=== PATIENT | female | born 1960 | race Caucasian/White ===

== ENCOUNTER 2023-02-25 07:06 | Inpatient (IN) | payer MEDICARE, OTHER ==
[2023-02-25] MEDS ORDERED: SODIUM CHLORIDE 0.9% 500 ML 500 ML IV ONE (07:10)
--- NOTE | 2023-02-25 07:13 | ED ---
General Adult HPI - General Stated complaint: AMS Time Seen by Provider: 02/25/23 07:06 Source: patient, RN notes reviewed, old records reviewed - History of Present Illness Initial comments: This is a 62-year-old female who arrives via EMS. Patient was found at home initially unresponsive to the sister eventually came around and became combative in route. Sister states she is a seizure patient is on seizure medication howev er she does not what is patient is unable to give any further history sister. Sister thought maybe she hurt her left leg because it was bent behind her however EMS indicates that in route the patient was able to move the left leg. At this time there is no further history available sister will be here soon hopefully - Related Data Allergies Allergy/AdvReac Type Severity Reaction Status Date / Time No Known Allergies Allergy Verified 02/25/23 08:30 Review of Systems ROS Statement: Those systems with pertinent positive or pertinent negative responses have been documented in the HPI. ROS Other: All systems not noted in ROS Statement are negative. General Exam - General Exam Comments Initial Comments: GENERAL: Patient is well-developed and well-nourished. Patient is nontoxic and well- hydrated and is in no acute distress. ENT: Neck is soft and supple. No significant lymphadenopathy is noted. Oropharynx is clear. Moist mucous membranes. Neck has full range of motion without eliciting any pain. EYES: The sclera were anicteric and conjunctiva were pink and moist. Extraocular movements were intact and pupils were equal round and reactive to light. Eyelids were unremarkable. PULMONARY: Unlabored respirations. Good breath sounds bilaterally. No audible rales rhonchi or wheezing was noted. CARDIOVASCULAR: There is a regular rate and rhythm without any murmurs gallops or rubs. ABDOMEN: Soft and nontender with normal bowel sounds. SKIN: Skin is clear with no lesions or rashes and otherwise unremarkable. NEUROLOGIC: Patient is alert and oriented 0. Cranial nerves II through XII are grossly intact. MUSCULOSKELETAL: Patient appears to be able to move all 4 extremities without much limitation LYMPHATICS: No significant lymphadenopathy is noted PSYCHIATRIC: Unable to assess Course Vital Signs 02/25/23 07:18 Temperature 97.9 F Pulse Rate 60 Respiratory 18 Rate Blood Pressure 193/93 O2 Sat by Pulse 97 Oximetry Procedures - Restraint - Face to Face Restraint Occurrence 1 Patient's Immediate Situation: Endangers self safety, Endangers others' safety, Endangers staff safety Patient's Reaction to the Intervention: Uncooperative, Bizarre, Combative Patient's Medical & Behavioral Condition: Awake, Agitated Need to Continue or Terminate Restraint or Seclusion: Continue Face to Face Eval of Restraint Date: 02/25/23 Face to Face Eval of Restraint Time: 07:06 Medical Decision Making - Medical Decision Making EKG was interpreted by myself. EKG shows sinus rhythm at 79 bpm OK interval 264 QRS is 114 QT interval 380 QTC is 4:15. Patient's EKG shows no ST segment elevation or depression. Was pt. sent in by a medical professional or institution (, PA, CARPET YARN WINDER OPERATOR, urgent care, hospital, or [facility]...) When possible be specific @ -No Did you speak to anyone other than the patient for history (EMS, parent, family, police, friend...)? What history was obtained from this source @ -Sister gave some of the history Did you review nursing and triage notes (agree or disagree)? Why? @ -I reviewed and agree with nursing and triage notes Were old charts reviewed (outside hosp., previous admission, EMS record, old EKG, old radiological studies, urgent care reports/EKG's, [facility] records)? Report findings @ -No old charts were reviewed Differential Diagnosis (chest pain, altered mental status, abdominal pain women, abdominal pain men, vaginal bleeding, weakness, fever, dyspnea, syncope, headache, dizziness, GI bleed, back pain, seizure, CVA, palpatations, mental health, musculoskeletal)? @ -Differential Altered Mental Status: Hypoglycemia, DKA, hypercapnia, ETOH, overdose, CO poisoning, trauma, myxedema coma, HTN encephalopathy, infection, encephalitis, psychosis, intercranial hemorrhage, hepatic encephalopathy, meningitis, CVA, this is not meant to be an all-inclusive list EKG interpreted by me (3pts min.). @ -As above X-rays interpreted by me (1pt min.). @ -Chest x-ray shows no acute abnormality CT interpreted by me (1pt min.). @ -CT of the brain shows a remote area of injury in the occipital region on the left. On the right there is a note of her injury that looks more. U/S interpreted by me (1pt. min.). @ -None done What testing was considered but not performed or refused? (CT, X-rays, U/S, labs)? Why? @ -None What meds were considered but not given or refused? Why? @ -None Did you discuss the management of the patient with other professionals (professionals i.e. , PA, CARPET YARN WINDER OPERATOR, lab, RT, psych nurse, social worker school, manager of applications development, teacher, surface to air weapons officer, case sealer)? Give summary @ -I spoke with sounds physicians and they agreed to admit the patient Was smoking cessation discussed for >3mins.? @ -No Was critical care preformed (if so, how long)? @ -No Were there social determinants of health that impacted care today? How? (Homelessness, low income, unemployed, alcoholism, drug addiction, transportation, low edu. Level, literacy, decrease access to med. care, longterm, rehab)? @ -No Was there de-escalation of care discussed even if they declined (Discuss DNR or withdrawal of care, Hospice)? DNR status @ -No What co-morbidities impacted this encounter? (DM, HTN, Smoking, COPD, CAD, Cancer, CVA, ARF, Chemo, Hep., AIDS, mental health diagnosis, sleep apnea, morbid obesity)? @ -None Was patient admitted / discharged? Hospital course, mention meds given and route, prescriptions, significant lab abnormalities, going to OR and other pertinent info. @ -Patient was unresponsive according to his sister when she initially found her this morning. Patient has slowly come around and she is more alert and talking occasionally but nowhere near her baseline according to the sister. Patient had a CAT scan that showed a potential injury in the right occipital region. Patient's lab work shows no significant abnormality to explain the patient's altered mental status. I spoke with son physicians and they agreed to admit the patient admitted the patient wrote admitting orders I consult the neurology Undiagnosed new problem with uncertain prognosis? @ -No Drug Therapy requiring intensive monitoring for toxicity (Heparin, Nitro, Insulin, Cardizem)? @ -No Were any procedures done? @ -No Diagnosis/symptom? @ -Altered mental status Acute, or Chronic, or Acute on Chronic? @ -Acute Uncomplicated (without systemic symptoms) or Complicated (systemic symptoms)? @ -Complicated Side effects of treatment? @ -No Exacerbation, Progression, or Severe Exacerbation? @ -No Poses a threat to life or bodily function? How? (Chest pain, [place], [place], pneumonia, PE, COPD, DKA, ARF, appy, cholecystitis, CVA, Diverticulitis, Homicidal, Suicidal, threat to staff... and all critical care pts) @ -Yes this could be a stroke leading to more significant stroke possible - Lab Data Result diagrams: 02/25/23 07:35 02/25/23 07:35 Lab Results 02/25/23 02/25/23 02/25/23 Range/Units 07:20 07:35 07:35 WBC 10.9 H (3.8-10.6) k/uL RBC 4.80 (3.80-5.40) m/uL Hgb 13.6 (11.4-16.0) gm/dL Hct 43.0 (34.0-46.0) % MCV 89.6 (80.0-100.0) fL MCH 28.4 (25.0-35.0) pg MCHC 31.7 (31.0-37.0) g/dL RDW 14.8 (11.5-15.5) % Plt Count 239 (150-450) k/uL MPV 8.1 Neutrophils % 72 % Lymphocytes % 20 % Monocytes % 5 % Eosinophils % 1 % Basophils % 0 % Neutrophils # 7.8 H (1.3-7.7) k/uL Lymphocytes # 2.2 (1.0-4.8) k/uL Monocytes # 0.6 (0-1.0) k/uL Eosinophils # 0.2 (0-0.7) k/uL Basophils # 0.0 (0-0.2) k/uL Hypochromasia Slight PT 9.8 (9.0-12.0) sec INR 0.9 (<1.2) APTT 25.3 (22.0-30.0) sec Sodium (137-145) mmol/L Potassium (3.5-5.1) mmol/L Chloride (98-107) mmol/L Carbon Dioxide (22-30) mmol/L Anion Gap mmol/L BUN (7-17) mg/dL Creatinine (0.52-1.04) mg/dL Est GFR (CKD-EPI)AfAm (>60 ml/min/1.73 sqM) Est GFR (CKD-EPI)NonAf (>60 ml/min/1.73 sqM) Glucose (74-99) mg/dL POC Glucose (mg/dL) 148 H (70-110) mg/dL POC Glu [employer]ishing Materials Preparer ID Corry Zarco Calcium (8.4-10.2) mg/dL Total Bilirubin (0.2-1.3) mg/dL AST (14-36) U/L ALT (4-34) U/L Alkaline Phosphatase (38-126) U/L Troponin I (0.000-0.034) ng/mL Total Protein (6.3-8.2) g/dL Albumin (3.5-5.0) g/dL Urine Opiates Screen (NotDetected) Ur Oxycodone Screen (NotDetected) Urine Methadone Screen (NotDetected) Ur Propoxyphene Screen (NotDetected) Ur Barbiturates Screen (NotDetected) U Tricyclic Antidepress (NotDetected) Ur Phencyclidine Scrn (NotDetected) Ur Amphetamines Screen (NotDetected) U Methamphetamines Scrn (NotDetected) U Benzodiazepines Scrn (NotDetected) Urine Cocaine Screen (NotDetected) U Marijuana (THC) Screen (NotDetected) 02/25/23 02/25/23 02/25/23 Range/Units 07:35 07:35 07:35 WBC (3.8-10.6) k/uL RBC (3.80-5.40) m/uL Hgb (11.4-16.0) gm/dL Hct (34.0-46.0) % MCV (80.0-100.0) fL MCH (25.0-35.0) pg MCHC (31.0-37.0) g/dL RDW (11.5-15.5) % Plt Count (150-450) k/uL MPV Neutrophils % % Lymphocytes % % Monocytes % % Eosinophils % % Basophils % % Neutrophils # (1.3-7.7) k/uL Lymphocytes # (1.0-4.8) k/uL Monocytes # (0-1.0) k/uL Eosinophils # (0-0.7) k/uL Basophils # (0-0.2) k/uL Hypochromasia PT (9.0-12.0) sec INR (<1.2) APTT (22.0-30.0) sec Sodium 138 (137-145) mmol/L Potassium 5.3 H (3.5-5.1) mmol/L Chloride 100 (98-107) mmol/L Carbon Dioxide 31 H (22-30) mmol/L Anion Gap 7 mmol/L BUN 29 H (7-17) mg/dL Creatinine 1.59 H (0.52-1.04) mg/dL Est GFR (CKD-EPI)AfAm 40 (>60 ml/min/1.73 sqM) Est GFR (CKD-EPI)NonAf 35 (>60 ml/min/1.73 sqM) Glucose 176 H (74-99) mg/dL POC Glucose (mg/dL) (70-110) mg/dL POC Glu Hat Finishing Materials Preparer ID Calcium 9.6 (8.4-10.2) mg/dL Total Bilirubin 0.4 (0.2-1.3) mg/dL AST 35 (14-36) U/L ALT 45 H (4-34) U/L Alkaline Phosphatase 190 H (38-126) U/L Troponin I <0.012 (0.000-0.034) ng/mL Total Protein 8.2 (6.3-8.2) g/dL Albumin 4.4 (3.5-5.0) g/dL Urine Opiates Screen Not Detected (NotDetected) Ur Oxycodone Screen Not Detected (NotDetected) Urine Methadone Screen Not Detected (NotDetected) Ur Propoxyphene Screen Not Detected (NotDetected) Ur Barbiturates Screen Not Detected (NotDetected) U Tricyclic Antidepress Not Detected (NotDetected) Ur Phencyclidine Scrn Not Detected (NotDetected) Ur Amphetamines Screen Not Detected (NotDetected) U Methamphetamines Scrn Not Detected (NotDetected) U Benzodiazepines Scrn Not Detected (NotDetected) Urine Cocaine Screen Not Detected (NotDetected) U Marijuana (THC) Screen Not Detected (NotDetected) Disposition Clinical Impression: Altered mental status Disposition: ADMITTED IP TO THIS [facility] Referrals: None,Stated [Primary Care Provider] - 1-2 days Time of Disposition: 10:55
[2023-02-25 07:22] LABS: Glucose,Whole Blood 148 mg/dL (70-110)
[2023-02-25 08:11] LABS: Basophils % (A) 0 %; Eosinophils # (A) 0.2 k/uL (0-0.7); Eosinophils % (A) 1 %; HGB 13.6 gm/dL (11.4-16.0); Hypochromasia Slight; Lymphocytes # (A) 2.2 k/uL (1.0-4.8); Lymphocytes % (A) 20 %; MCH 28.4 pg (25.0-35.0); MCHC 31.7 g/dL (31.0-37.0); MCV 89.6 fL (80.0-100.0); Mean Platelet Volume 8.1; Monocytes # (A) 0.6 k/uL (0-1.0); Monocytes % (A) 5 %; Neutrophils # (A) 7.8 k/uL (1.3-7.7); Neutrophils % (A) 72 %; Platelet Count 239 k/uL (150-450); RDW 14.8 % (11.5-15.5); WBC 10.9 k/uL (3.8-10.6)
--- NOTE | 2023-02-25 08:16 | XR ---
EXAMINATION TYPE: XR chest 1V DATE OF EXAM: 02/25/2023 COMPARISON: None INDICATION: Altered mental status TECHNIQUE: Single frontal view of the chest is obtained. FINDINGS: The heart size is normal. The pulmonary vasculature is normal. There is a 1.1 cm nodular density periphery of the right upper lung field. No suspicious infiltrates are evident. IMPRESSION: 1. No acute pulmonary process. 2. 1.1 cm nodule right lung. CT or PET CT can be performed as follow-up.
[2023-02-25 08:21] LABS: ALT 45 U/L (4-34); AST 35 U/L (14-36); African American GFR (CKD) 40 (>60 ml/min/1.73 sqM); Albumin 4.4 g/dL (3.5-5.0); Alkaline Phosphatase 190 U/L (38-126); Anion Gap 7 mmol/L; Blood Urea Nitrogen 29 mg/dL (7-17); Calcium 9.6 mg/dL (8.4-10.2); Carbon Dioxide 31 mmol/L (22-30); Chloride 100 mmol/L (98-107); Glucose 176 mg/dL (74-99); Non-African American GFR(CKD) 35 (>60 ml/min/1.73 sqM); Potassium 5.3 mmol/L (3.5-5.1); Sodium 138 mmol/L (137-145); Total Bilirubin 0.4 mg/dL (0.2-1.3); Total Protein 8.2 g/dL (6.3-8.2)
[2023-02-25 08:35] LABS: INR 0.9 (<1.2); Partial Thromboplastin Time 25.3 sec (22.0-30.0); Prothrombin Time 9.8 sec (9.0-12.0)
--- NOTE | 2023-02-25 08:43 | CT ---
EXAMINATION TYPE: CT brain rachel marcus con DATE OF EXAM: 02/25/2023 COMPARISON: None HISTORY: FALL CT DLP: 1319.[address] of the brain was performed. The ventricles, basal cisterns and sulci overlying the cerebral convexities demonstrate mild enlargem ent. There is decreased attenuation within the bilateral occipital lobes with ex vacuo dilatation of the l eft occipital horn suggesting remote process. On the right the decreased attenuation may reflect rela tively recent vascular insult. Correlate with MRI. There is no evidence for intracranial hemorrhage or sulcal effacement. There is decreased attenuatio n about the periventricular white matter and deep white matter of both cerebral hemispheres, compatib le with chronic small vessel ischemia. No mass effects are seen. If symptoms persist consider MRI. Osseous calvarium is intact. IMPRESSION: 1. Age related atrophic and chronic small vessel ischemic change without acute intracranial hemorrha ge. 2. There is decreased attenuation within the bilateral occipital lobes with ex vacuo dilatation of th e left occipital horn suggesting remote process. On the right the decreased attenuation may reflect r elatively recent vascular insult. Correlate with MRI. CT Cervical Spine: Unenhanced CT of the cervical spine was performed with bone and soft tissue window settings submitted . Coronal and sagittal reconstruction is obtained. There is normal alignment and prevertebral soft tissues. No evidence for acute cervical fracture . Scattered degenerative disc disease and spondylosis. Biapical scarring. IMPRESSION: 1. No evidence for acute fracture or subluxation of the cervical spine.
[2023-02-25] MEDS: LORazepam 2 MG/ML INJ IV STA ×2 (09:33→11:03)
[2023-02-25] MEDS: ACETAMINOPHEN TAB 500 MG TAB PO STA ×2 (09:34→09:45)
[2023-02-25 10:39] LABS: Urn Cannabinoid Scrn Not Detected (NotDetected)
[2023-02-25 10:40] LABS: Amphetamine Screen,Urine Not Detected (NotDetected); Barbiturate Screen,Urine Not Detected (NotDetected); Benzodiazepines Screen,Urine Not Detected (NotDetected); Cocaine Screen,Urine Not Detected (NotDetected); Methadone Screen, Urine Not Detected (NotDetected); Opiate Screen,Urine Not Detected (NotDetected); Oxycodone Screen, Urine Not Detected (NotDetected); Phencyclidine Screen,Urine Not Detected (NotDetected); Tricyclic Antidepressant,Urine Not Detected (NotDetected)
[2023-02-25] MEDS ORDERED: ACETAMINOPHEN IV (For NPO) 1,000 MG in EMPTY BAG 1 BAG IVPB ONE (14:39)
--- NOTE | 2023-02-25 17:19 | P.HPIM ---
History of Present Illness H&P Date: 02/25/23 Chief Complaint: AMS 62-year-old woman with medical history of seizure disorder, hypertension, atrial flutter presented for evaluation of altered mental status. Patient was confused and unable to provide any meaningful history during interview. History is taken from ER provider signout, chart review, daughter who is at bedside. From my understanding, patient has been living in [place] and for the last year has been bouncing back and forth from rehab due to recurrent seizures. Her seizures manifest as episodes of staring off into the distance, but are never generalized tonic clonic. She had been on Keppra, however, at some point last year she developed double vision which was vertically oriented, prompting her physicians to take her off of her medications. Since that time, patient has had recurrent bouts of seizures. During the last episode, patient had EMS called for initial unresponsiveness and staring off into space, however, during transportation here she became combative in the ambulance. Patient is unable to participate in review of systems due to altered mental status. In the emergency room, patient was afebrile, 174/92, heart rate 68, 96% on room air. CBC demonstrated mild leukocytosis 10.9, otherwise unremarkable. His metabolic panel showed potassium of 5.3, CO2 of 31, BMI 29, creatinine of 1.59. Liver function test showed ALT 45, AST of 35, alkaline phosphatase 190. Troponin was less than 0.012. Coags are unremarkable. Urine tox screen was negative. Chest x-ray shows clear parenchyma bilaterally with possibly increased vascularity, there is a 1 cm nodule in the right upper lobe. Head/cervical spine CT showed decreased attenuation within the bilateral occipital lobes with X vacuo dilation of the left us a little horn suggesting remote process, on the right side there is decreased attenuation which may reflect relatively recent vascular insult. EKG shows normal sinus rhythm with right bundle branch block, low voltage EKG overall. Case was discussed with the emergency room provider and decision was made to admit patient to hospital for further evaluation of seizure-like activity. All Systems reviewed and pertinent positives and negatives noted in HPI, all other symptoms are negative Gen: in no apparent distress, resting comfortably in bed Eyes: PERRL, no scleral injection or icterus HENT: normocephalic, atraumatic, good hearing acuity, moist mucous membranes Neck: no tracheal deviation, full range of motion Resp: good air exchange, breathing comfortably with no accessory muscle use, no tactile fremitus CVS: good distal perfusion x 4, no pitting edema GI: soft, NTTP, ND, no hepatosplenomegaly : no suprapubic tenderness, no CVAT, rojas catheter not present MSK: no clubbing, no cyanosis, no noted contractures of extremities Skin: no noted rashes, petechiae; temperature of skin is appropriate Neuro: moving all extremities without signs of weakness, CN II-XII intact Labs and imaging as above Assessment: Altered mental status History of seizure disorder History of CVA in the occipital lobe Hypertension History of atrial flutter Plan: Vital signs reviewed and noted in the HPI Lab work reviewed and noted in the HPI EKG and CXR are personally interpreted and noted in the HPI CT Head and Neck was reviewed and reported in HPI above Case was discussed with the Emergency Room provider and decision was made to admit the patient for altered mental status, and stroke rule out Continue aspirin 81 mg daily Start atorvastatin 80 mg at bedtime Hold off on Keppra until results of EEG available Neurology consult MRI of the brain Echocardiogram TSH Lipid panel, A1c added to a.m. labs Patient is full code Past Medical History Past Medical History: Atrial Fibrillation, GERD/Reflux, Hypertension, Seizure Disorder, Thyroid Disorder Additional Past Medical History / Comment(s): severe pancreatitis - hospitallized for about a year 2021, blood clot on top of heart while in hospital History of Any Multi-Drug Resistant Organisms: None Reported Past Surgical History: Cholecystectomy Additional Past Surgical History / Comment(s): Cyst removal Smoking Status: Former smoker Past Alcohol Use History: None Reported Past Drug Use History: None Reported Medications and Allergies Home Medications Medication Instructions Recorded Confirmed Type Aspirin 81 mg PO DAILY 02/25/23 02/25/23 History Levothyroxine Sodium [Synthroid] 25 mcg PO DAILY 02/25/23 02/25/23 History Metoprolol Succinate [Toprol XL] 50 mg PO DAILY 02/25/23 02/25/23 History Omeprazole 20 mg PO DAILY 02/25/23 02/25/23 History levETIRAcetam [Keppra] 500 mg PO BID 02/25/23 02/25/23 History Allergies Allergy/AdvReac Type Severity Reaction Status Date / Time No Known Allergies Allergy Verified 02/25/23 12:00 Physical Exam Osteopathic Statement: *. No significant issues noted on an osteopathic structural exam other than those noted in the History and Physical/Consult. Vitals: Vital Signs Temp Pulse Resp BP Pulse Ox 02/25/23 15:00 68 18 168/98 96 02/25/23 13:00 70 18 172/96 97 02/25/23 11:00 67 18 183/98 97 02/25/23 10:00 68 18 174/92 96 02/25/23 07:18 97.9 F 60 18 193/93 97 Intake and Output 02/25/23 02/25/23 02/25/23 06:59 14:59 22:59 Other: Weight 74.843 kg Results CBC & Chem 7: 02/25/23 07:35 02/25/23 07:35 Labs: Abnormal Lab Results - Last 24 Hours (Table) 02/25/23 02/25/23 02/25/23 Range/Units 07:20 07:35 07:35 WBC 10.9 H (3.8-10.6) k/uL Neutrophils # 7.8 H (1.3-7.7) k/uL Potassium 5.3 H (3.5-5.1) mmol/L Carbon Dioxide 31 H (22-30) mmol/L BUN 29 H (7-17) mg/dL Creatinine 1.59 H (0.52-1.04) mg/dL Glucose 176 H (74-99) mg/dL POC Glucose (mg/dL) 148 H (70-110) mg/dL ALT 45 H (4-34) U/L Alkaline Phosphatase 190 H (38-126) U/L
[2023-02-25] MEDS: Lacosamide IV (ages 17+ yrs) 200 MG/20 ML ML IVP SCH (22:53)
--- NOTE | 2023-02-25 22:53 | EEG ---
DATE OF SERVICE: 02/25/2023 ELECTROENCEPHALOGRAM REPORT PREAMBLE: This is a 62-year-old female with seizure. CURRENT MEDICATIONS: Keppra 500 mg b.i.d. EEG FINDINGS: This is a 21-channel digital EEG recorded with video component, utilizing 10/20 international system with referential and bipolar montages. The recording starts and continues with presence of diffuse slow waves including mixed delta and theta frequency seen in bihemispheric region. A lot of sleep spindles were also seen during the study. Photic stimulation was not performed. Her right temporal sharp appearing waves were seen in first part of the study. No electrographic seizure was recorded. Photic stimulation was not performed. EKG channel showed no obvious arrhythmia. IMPRESSION: This is an abnormal sleep EEG due to diffuse disorganization, slowing, of severe degree, suggestive of generalized cerebral dysfunction as can be seen with toxic metabolic encephalopathy or related to diffuse structural brain abnormality, or postictal effect. Clinical correlation is recommended. Some right temporal sharp waves were seen in early part of the study, which may suggest underlying cortical irritability. No electrographic seizure was recorded. Suggest prolonged EEG for further evaluation. MMODL / IJN: [id number] / MTDFrancis
[2023-02-25] MEDS: levETIRAcetam IV 500 MG/5 ML VIAL IVP SCH (23:00)
[2023-02-26] MEDS ORDERED: PHENYTOIN SODIUM INJ 1,200 MG in SODIUM CHLORIDE 0.9% 100 ML IVPB STA (03:43)
[2023-02-26 03:46] LABS: Glucose,Whole Blood 116 mg/dL (70-110)
[2023-02-26] MEDS: LORazepam 2 MG/ML INJ IV PRN (03:56)
[2023-02-26 04:32] LABS: Glucose,Whole Blood 133 mg/dL (70-110)
[2023-02-26] MEDS ORDERED: NALOXONE 0.4 MG/ML 1 ML VIAL IV PRN (04:53)
--- NOTE | 2023-02-26 05:51 | P.CNPUL ---
History of Present Illness Consult date: 02/26/23 Requesting physician: Deacon Chau Reason for consult: other (ICU management) Chief complaint: Seizure-like activity History of present illness: I'm seeing this patient in consultation today 02/26/2023 after the patient was A-teamed earlier this morning for seizure-like activity. Patient is 62-year-old female with medical history significant for relatively new onset seizure disorder that reportedly started March,. Patient also has a history of hypertension, atrial fibrillation, hypothyroidism, and pancreatitis. Patient is reportedly visiting her sister and is actually from [place]. Her primary care provider is Hansa Guevara out of [place], [place]. Patient was confused and unable to provide any meaningful history during interview. Her sister is at the bedside and provides most of this information. To my understanding, patient started to experience seizures March,. Sister is unable to describe the seizures, and has not witnessed her previous seizures personally. Patient was reportedly started on Keppra, but developed diplopia prompting her physician to discontinue this. Since that time, patient has had recurrent bouts of seizures. Yesterday morning, the patient was found unresponsive on the floor next to her bed. It is unknown how long the patient was down on the floor. EMS was called, and in route to the hospital, she became combative. CT of the brain and c-spine on arrival showed decreased attenuation within the bilateral occipital lobes with ex vacuo dilatation of the left occipital horn suggesting remote process. On the right, the decreased attenuation may reflect relatively more recent vascular insult. EEG showed diffuse disorganization, severe slowing, suggestive of generalized cerebral dysfunction seen with toxic metabolic encephalopathy , diffuse structural abnormality, or possibly postictal effect. There were temporal sharp waves seen suggesting underlying cortical irritability. No EEG evidence of seizure was recorded. CBC on arrival is unremarkable. BMP shows sodium 138, potassium 5.3, chloride 100, serum bicarb 31, BUN 29, creatinine 1.59, glucose 176. Liver function test showed ALT 45, AST of 35, alkaline phosphatase 190. Urine drug screen was negative. Chest x-ray showed a 1.1 cm right upper lung nodule that will need further evaluation on an outpatient basis. No acute cardiopulmonary process. Patient was admitted to the cardiac stepdown unit. Earlier this morning, the patient had sustained seizure-like activity over approximately 30 minutes according to the technical staff engineer. No generalized tonic-clonic activity. The patient reportedly would have intermittent bouts of absent staring and unresponsiveness that lasted about 20 seconds and then repeated. No complete recovery between episodes. This was terminated with a when necessary dose of Ativan. The patient was already on Keppra and Vimpat, and neurology recommended loading the patient with Dilantin. On my evaluation the patient is responsive and able to answer simple questions. She is oriented to person, place, and time. Neuro examination is nonfocal. She is hemodynamically stable, on room air, in no acute distress.. Patient was transferred to the intensive care unit for closer monitoring. Plan is for prolonged EEG in the morning and follow-up brain MRI. Review of Systems ROS unobtainable: due to mental status Past Medical History Past Medical History: Atrial Fibrillation, GERD/Reflux, Hypertension, Seizure Disorder, Thyroid Disorder Additional Past Medical History / Comment(s): severe pancreatitis - hospitallized for about a year 2021, blood clot on top of heart while in hospital History of Any Multi-Drug Resistant Organisms: None Reported Past Surgical History: Cholecystectomy Additional Past Surgical History / Comment(s): Cyst removal Past Anesthesia/Blood Transfusion Reactions: No Reported Reaction Smoking Status: Former smoker Medications and Allergies Home Medications Medication Instructions Recorded Confirmed Type Aspirin 81 mg PO DAILY 02/25/23 02/25/23 History Levothyroxine Sodium [Synthroid] 25 mcg PO DAILY 02/25/23 02/25/23 History Metoprolol Succinate [Toprol XL] 50 mg PO DAILY 02/25/23 02/25/23 History Omeprazole 20 mg PO DAILY 02/25/23 02/25/23 History levETIRAcetam [Keppra] 500 mg PO BID 02/25/23 02/25/23 History Allergies Allergy/AdvReac Type Severity Reaction Status Date / Time No Known Allergies Allergy Verified 02/25/23 12:00 Physical Exam Vitals: Vital Signs Temp Pulse Pulse Resp BP BP Pulse Ox 02/26/23 03:30 98.8 F 67 18 149/91 97 02/26/23 00:43 98 02/26/23 00:00 98.7 F 82 16 146/79 98 02/25/23 22:00 98.6 F 70 16 141/67 97 02/25/23 21:00 98.4 F 78 18 134/72 98 02/25/23 15:00 68 18 168/98 96 08/23/23 13:00 70 18 172/96 97 02/25/23 11:00 67 18 183/98 97 02/25/23 10:00 68 18 174/92 96 02/25/23 07:18 97.9 F 60 18 193/93 97 FiO2 02/26/23 03:30 02/26/23 00:43 21 02/26/23 00:00 02/25/23 22:00 02/25/23 21:00 02/25/23 15:00 02/25/23 13:00 02/25/23 11:00 02/25/23 10:00 02/25/23 07:18 Intake and Output 02/25/23 02/25/23 02/26/23 14:59 22:59 06:59 Intake Total 10 Output Total 150 Balance 10 -150 Intake: IV 10 Invasive Line 2 10 Output: Urine 150 Other: Voiding Method External Catheter External Catheter Weight 74.843 kg 74.843 kg GENERAL EXAM: Drowsy, 62-year-old white female, having intermittent bouts of intractable crying. HEAD: Normocephalic and atraumatic EYES: Normal reaction of pupils, equal size. NOSE: Clear with pink turbinates. THROAT: No erythema or exudates. NECK: No masses, no JVD. CHEST: No chest wall deformity. LUNGS: Equal air entry with no crackles, wheeze, rhonchi or dullness. On room air. No conversational dyspnea or accessory muscle use.. CVS: S1 and S2 normal with no audible murmur, regular rhythm. No extra heart sounds ABDOMEN: No hepatosplenomegaly, active bowel sounds, no guarding or rigidity. SPINE: No scoliosis or deformity SKIN: No rashes CENTRAL NERVOUS SYSTEM: No focal deficits, tone is normal in all 4 extremities. EXTREMITIES: There is no peripheral edema, clubbing, or cyanosis. Peripheral pulses are intact. Results - Laboratory Findings CBC and BMP: 02/26/23 06:53 02/26/23 05:27 PT/INR, D-dimer PT 9.8 sec (9.0-12.0) 02/25/23 07:35 INR 0.9 (<1.2) 02/25/23 07:35 Abnormal lab findings: Abnormal Labs 02/25/23 02/25/23 02/25/23 07:20 07:35 07:35 WBC 10.9 H Neutrophils # 7.8 H Potassium 5.3 H Carbon Dioxide 31 H BUN 29 H Creatinine 1.59 H Glucose 176 H POC Glucose (mg/dL) 148 H ALT 45 H Alkaline Phosphatase 190 H 02/26/23 03:44 WBC Neutrophils # Potassium Carbon Dioxide BUN Creatinine Glucose POC Glucose (mg/dL) 116 H ALT Alkaline Phosphatase - Diagnostic Findings Chest x-ray: image reviewed Assessment and Plan Assessment: Suspected status epilepticus, terminated with 1 mg of Ativan. EEG from last n ight showed diffuse disorganization, severe slowing, suggestive of generalized cerebral dysfunction seen with toxic metabolic encephalopathy, diffuse structural abnormality, or postictal effect. There were temporal sharp waves seen suggesting underlying cortical irritability. No EEG evidence of seizure was recorded at that time. Altered mental status, likely postictal Remote CVA of the occipital lobe, CT of the brain and c-spine on arrival showed decreased attenuation within the bilateral occipital lobes with ex vacuo dilatation of the left occipital horn suggesting remote process. On the right, the decreased attenuation may reflect more recent vascular insult. No acute hemorrhage or mass effect. History of seizure disorder Suspect acute kidney injury, creatinine 1.59 Pulmonary nodule, chest x-ray showed a 1.1 cm right upper lung nodule Benign essential hypertension Reported history of atrial fibrillation, not anticoagulated, in normal sinus rhythm Hypothyroidism Plan: Patient's medications, labs, imaging reviewed Patient will be monitored in the intensive care unit When necessary Ativan for sustained seizure activity Antiepileptics per neurology Plan for follow-up brain MRI in the morning Extended EEG planned for the morning On low dose ASA 2-D echocardiogram ordered for the morning Protonix for GI prophylaxis May follow up outpatient in regard to pulmonary nodule, recommended CT or pet scan f/u We will continue to follow and make recommendations while in the intensive care unit I have personally seen and examined the patient, performed the documentation and the assessment and plan as written. Number of minutes spent on the visit:20 This is a joint evaluation that was done along with the nurse practitioner. This evaluation was done in more than 30 minutes. In summary, the patient was brought into the intensive care unit because of altered mentation and ongoing seizure activity. The EEG that was done yesterday was abnormal due to diffuse disorganization, slowing, severe changes suggestive of generalized cerebral dysfunction/toxic metabolic encephalopathy versus post ictal effects. Some right temporal sharp waves were seen in the early part of the study suggestive of cortical irritation. No active seizure was noted. The patient also had a CAT scan of the head and the C-spine indicating age-related atrophy and there was decreased attenuation within the bilateral occipital lobes with ex vacuo dilatation of the left occipital horn suggestive of a remote process. On the right, there is decreased at situation that may reflect a recent vascular insult. Her cardiac rhythm is sinus. She reportedly has A. fib and currently she is on no anticoagulants. Is a nodule in the right upper lobe which is probably a calcified pulmonary nodule. She is an ex-smoker. Creatinine is down to 0.9 and hemoglobin is at 12.5. Her mentation gradually improving and earlier this morning, I was able to wake her up and communicate with her and she seemed to be much more appropriate although she is still sleepy and lethargic. She remains on Keppra 1 g every 12 hours, she is on Vimpat 100 mg IV every 12 hours and she was loaded with Dilantin yesterday. Awaiting a repeat EEG. Awaiting echocardiogram. Awaiting another neurologic evaluation regarding her ongoing seizure activity. The patient will be kept in the intensive care unit f or now. Time with Patient: Greater than 30
[2023-02-26] MEDS: LEVOTHYROXINE 25 MCG TAB PO SCH (06:52)
[2023-02-26 06:55] LABS: African American GFR (CKD) 78 (>60 ml/min/1.73 sqM); Anion Gap 10 mmol/L; Blood Urea Nitrogen 25 mg/dL (7-17); Calcium 9.1 mg/dL (8.4-10.2); Carbon Dioxide 24 mmol/L (22-30); Chloride 104 mmol/L (98-107); Glucose 154 mg/dL (74-99); Magnesium 1.9 mg/dL (1.6-2.3); Non-African American GFR(CKD) 68 (>60 ml/min/1.73 sqM); Potassium 4.6 mmol/L (3.5-5.1); Sodium 138 mmol/L (137-145)
[2023-02-26 07:08] LABS: Basophils # (A) 0.1 k/uL (0-0.2); Basophils % (A) 1 %; Eosinophils # (A) 0.2 k/uL (0-0.7); Eosinophils % (A) 2 %; HCT 39.3 % (34.0-46.0); HGB 12.9 gm/dL (11.4-16.0); Lymphocytes # (A) 2.9 k/uL (1.0-4.8); Lymphocytes % (A) 34 %; MCH 29.1 pg (25.0-35.0); MCHC 32.9 g/dL (31.0-37.0); MCV 88.6 fL (80.0-100.0); Mean Platelet Volume 7.9; Monocytes # (A) 0.4 k/uL (0-1.0); Monocytes % (A) 5 %; Neutrophils # (A) 4.8 k/uL (1.3-7.7); Neutrophils % (A) 57 %; Platelet Count 191 k/uL (150-450); RBC 4.43 m/uL (3.80-5.40); RDW 14.8 % (11.5-15.5); WBC 8.5 k/uL (3.8-10.6)
[2023-02-26] MEDS: ASPIRIN 81 MG PO SCH (10:32)
[2023-02-26] MEDS: levETIRAcetam IV 500 MG/5 ML VIAL IVP SCH ×2 (10:32→20:29)
[2023-02-26] MEDS: PANTOPRAZOLE 40 MG TABLET PO SCH (10:32)
[2023-02-26] MEDS: Lacosamide IV (ages 17+ yrs) 200 MG/20 ML ML IVP SCH ×2 (10:33→20:27)
--- NOTE | 2023-02-26 10:35 | P.CNNES ---
History of Present Illness Consult date: 02/25/23 Requesting physician: Damien Subramanian Reason for Consult: Possible stroke History of Present Illness: Patient is a 62-year-old female came to the hospital by ambulance today at 7:06 AM. Patient's sister was present, who provided the history. Apparently 6 AM patient's sister heard patient moaning. She went into the room, and saw her legs were twisted and she has collapsed on the ground from her bed. She was unresponsive, moaning. The last time she was seen normal was 10 PM the night prior and she was doing well, ate well, had gone to bathroom by herself. As per EMS flow sheet, when they arrived, patient was sitting against her bed with her eyes closed and her head down. Patient was not responding to verbal stimuli. Patient would pull away when you touch her. Patient began grabbing her pants and underwear and was trying to situate them. Patient was not responding to EMS and was not able to follow directions to get on a stair chair. EKG showed sinus rhythm. Patient settled down for a short period of time and then became extremely irate and combative. Patient had to be held down for her safety. Patient was biting, kicking, slapping and pinching if she was let go. Patient remained that way the entire transport. Her blood pressure at the scene was 199/89, pulse rate 70, respiration 30, saturation 95% blood glucose 161. Vital signs on arrival blood pressure 193/93, pulse is 60, temperature 97.9. The blood pressure did improve to 144/90 subsequently. Chest x-ray showed no acute process. 1.1 cm nodule right lung. CT or PET scan can be performed as follow-up. Computed tomography scan of the head showed age-related atrophy and chronic small vessel ischemic changes without acute intracranial hemorrhage. There is decreased attenuation within the bilateral occipital lobes with ex vacuo dilation of the left occipital horns suggesting remote process. On the right the decreased attenuation may reflect relatively recent vascular insert. Correlate with MRI. CT of the cervical spine showed no evidence for acute fracture or subluxation of the cervical spine. I personally reviewed CT head and agree with the findings. EKG showed sinus rhythm blood tests showed WBC 10.9 hemoglobin 13.6, normal platelets. PT/PTT normal, sodium 138 potassium 5.3, BUN 29, creatinine 1.59. AST is 35, ALT 45. Troponins are negative. Urine drug screen negative, TSH normal. Patient's sister was present and I also talked to patient's son, who lives in [place]. Patient actually lives in [place], but has come to visit her sister about a month ago. In March 2022, patient suffered from pancreatitis, related to gallstones with multiple infections. She has been hospitalized for quite some time. Her seizures started since March 2022, in which she would have blank stare. She does not have grand mal seizures. Patient was started on Keppra 1500 mg twice a day and also on Vimpat 100 mg twice a day. The combination of these medications was controlling seizure, but patient developed vertical diplopia therefore early this year, the medications were decreased. Vimpat was taken off, and Keppra decrease down to 500 mg twice a day. Apparently been decreasing the medication, the diplopia did not improve. In late December/early January, patient was hospitalized for 1-1/2 weeks at [facility] after she had first convulsive seizure. Patient underwent computed tomography scan, MRI, EEG, and was found to have "mild stroke". She did undergo lumbar puncture, and patient's son states that her seizures were felt to be related to uncontrolled blood pressure. She was maintained on Keppra 500 mg twice a day. Patient follows up with Dr. Kobe Guevara in [facility]. Patient has smoked about 1 pack per day for 35 years, quit 2 years ago. She does not drink. She has hypertension but denies diabetes. Family history is positive for diabetes. Patient usually does not use any assistive device inside her home. Although outside she uses a 4 pronged cane. No previous history of concussions. Review of Systems As per his description from patient's sister Mayra Constitutional: Reports weight loss, Denies chills, Denies fever Eyes: bilateral diplopia, denies blurred vision, denies pain Ears: deny: decreased hearing, ear discharge Ears, nose, mouth and throat: Reports headache ([place]), Denies sore throat Cardiovascular: Denies chest pain, Denies shortness of breath Respiratory: Denies cough, Denies excessive sputum Gastrointestinal: Denies abdominal pain, Denies diarrhea, Denies nausea, Denies vomiting Genitourinary: Denies dysuria, Denies hematuria, Denies urge incontinence Musculoskeletal: Denies low back pain, Denies neck pain Integumentary: Denies pruritus, Denies rash Neurological: Reports as per HPI Psychiatric: Reports anxiety, Denies depression Endocrine: Reports fatigue, Reports weight change Hematologic/Lymphatic: Reports easy bruising, Denies easy bleeding Past Medical History Past Medical History: Atrial Fibrillation, GERD/Reflux, Hypertension, Seizure Disorder, Thyroid Disorder Additional Past Medical History / Comment(s): severe pancreatitis - hospitallized for about a year 2021, blood clot on top of heart while in hospital History of Any Multi-Drug Resistant Organisms: None Reported Past Surgical History: Cholecystectomy Additional Past Surgical History / Comment(s): Cyst removal Smoking Status: Former smoker Medications and Allergies Home Medications Medication Instructions Recorded Confirmed Type Aspirin 81 mg PO DAILY 02/25/23 02/25/23 History Levothyroxine Sodium [Synthroid] 25 mcg PO DAILY 02/25/23 02/25/23 History Metoprolol Succinate [Toprol XL] 50 mg PO DAILY 02/25/23 02/25/23 History Omeprazole 20 mg PO DAILY 02/25/23 02/25/23 History levETIRAcetam [Keppra] 500 mg PO BID 02/25/23 02/25/23 History Allergies Allergy/AdvReac Type Severity Reaction Status Date / Time No Known Allergies Allergy Verified 02/25/23 12:00 Physical Examination - Vital Signs Vital Signs: Vital Signs Temp Pulse Resp BP Pulse Ox 02/25/23 21:00 98.4 F 78 18 134/72 98 02/25/23 15:00 68 18 168/98 96 02/25/23 13:00 70 18 172/96 97 02/25/23 11:00 67 18 183/98 97 02/25/23 10:00 68 18 174/92 96 02/25/23 07:18 97.9 F 60 18 193/93 97 Intake and Output 02/25/23 02/25/23 02/25/23 06:59 14:59 22:59 Other: Weight 74.843 kg 74.843 kg Patient is an elderly female, who appears postictal, very groggy, staying on her right side. Patient does not make much eye contact. She did open eyes, but did not track, or follow directions. Patient did not speak. Pupils are equal, round and reacting. Patient did not cooperate for extraocular muscle testing or visual toribio. Her face appears symmetric grossly. She did not protrude her tongue. Other cranial nerves cannot be tested. Patient did not cooperate for muscle strength testing. She is holding her arms rigid across her chest. Likewise she is holding her legs tightly. Reflexes are 1+ and plantars are flat. No obvious seizure activity noted. Patient does withdraw to painful stimuli in all 4 limbs with no obvious weakness noted. On general examination, there is no carotid bruit or murmur, S1-S2 audible. Chest is clear on consultation. Abdomen is soft nontender. No organomegaly, bowel sounds present. Peripheral pulses are present. No edema. Results - Laboratory Findings CBC and BMP: 02/26/23 06:53 02/26/23 05:27 Abnormal Lab Findings: Abnormal Labs 02/25/23 02/25/23 02/25/23 07:20 07:35 07:35 WBC 10.9 H Neutrophils # 7.8 H Potassium 5.3 H Carbon Dioxide 31 H BUN 29 H Creatinine 1.59 H Glucose 176 H POC Glucose (mg/dL) 148 H ALT 45 H Alkaline Phosphatase 190 H Assessment and Plan Assessment: * Seizure disorder, came with probable seizure, with postictal state. * Hypertension * Abnormal CT head, with evidence of hypodensity in the bilateral occipital region. Uncertain if related to PRES on previous CVA. * ?Atrial fibrillation (reported in past history), currently in sinus rhythm. * Acute kidney injury * Mildly elevated liver enzymes * History of pancreatitis * History of tobacco use Plan: * Patient is currently in postictal state. * Patient is currently on Keppra 500 mg twice a day at home. We will increase Keppra to 1000 mg twice a day, and also start Vimpat 100 mg twice a day. * Discussed with patient's son, agreed with above recommendations. * Stat EEG was performed earlier today, which was abnormal sleep EEG due to diffuse disorganization, suggestive of generalized cerebral dysfunction as can be seen with toxic metabolic encephalopathy or related to diffuse structural brain abnormality or postictal effect. Clinical correlation is recommended. Some right temporal sharp waves were seen in early part of the study which may suggest underlying cortical irritability. No electrographic seizure was recorded. Suggest prolonged EEG for further evaluation. * Obtain medical records from recent hospitalization in [facility]. * Seizure precautions. * Patient has history of CVA. MRI of the brain rule out new CVA. * Continue aspirin for now. Need to further investigate regarding her reported history of atrial fibrillation. Currently in sinus rhythm. * DVT prophylaxis: Start heparin 5000 units subcu every 12 hour. * Neurology will continue to follow. Thank you for the consult. Time with Patient: Greater than 30
[2023-02-26] MEDS ORDERED: HEPARIN SODIUM,PORCINE 5,000 UNIT/ML 1 ML VIAL SQ SCH (10:45)
[2023-02-26] MEDS: METOPROLOL SUCCINATE (ER) 50 MG TAB.ER.24H PO SCH (10:45)
--- NOTE | 2023-02-26 11:04 | P.PN ---
Subjective Progress Note Date: 02/26/23 Pt had another episode of agitation and altered mental status, suspected post- ictal. Had A-Team called overnight and neurologist recommended transferring to ICU. Gen: in no apparent distress, resting comfortably in bed Eyes: PERRL, no scleral injection or icterus HENT: normocephalic, atraumatic, good hearing acuity, moist mucous membranes Neck: no tracheal deviation, full range of motion Resp: good air exchange, breathing comfortably with no accessory muscle use, no tactile fremitus CVS: good distal perfusion x 4, no pitting edema GI: soft, NTTP, ND, no hepatosplenomegaly : no suprapubic tenderness, no CVAT, rojas catheter not present MSK: no clubbing, no cyanosis, no noted contractures of extremities Skin: no noted rashes, petechiae; temperature of skin is appropriate Neuro: moving all extremities without signs of weakness, CN II-XII intact Hospital Course: 62-year-old woman with medical history of seizure disorder, hypertension, atrial flutter presented for evaluation of altered mental status. In the emergency room, patient was afebrile, 174/92, heart rate 68, 96% on room air. CBC demonstrated mild leukocytosis 10.9, otherwise unremarkable. His metabolic panel showed potassium of 5.3, CO2 of 31, BMI 29, creatinine of 1.59. Liver function test showed ALT 45, AST of 35, alkaline phosphatase 190. Troponin was less than 0.012. Coags are unremarkable. Urine tox screen was negative. Chest x-ray shows clear parenchyma bilaterally with possibly increased vascularity, there is a 1 cm nodule in the right upper lobe. Head/cervical spine CT showed decreased attenuation within the bilateral occipital lobes with X vacuo dilation of the left us a little horn suggesting remote process, on the right side there is decreased attenuation which may reflect relatively recent vascular insult. EKG shows normal sinus rhythm with right bundle branch block, low voltage EKG overall. Case was discussed with the emergency room provider and decision was made to admit patient to hospital for further evaluation of seizure-like activity. Assessment: Altered mental status, suspected seizures History of seizure disorder History of CVA in the occipital lobe Acute Kidney Injury, resolved Hypertension History of atrial flutter Plan: Pt is afebrile, 162/84, HR 66, 94% room air CBC, is unremarkable. BMP show improvement in REN to a cr of 0.91 from 1.6, BUN 25 from 29 EEG showed diffuse disorganization and slowing, also some right temporal sharp waves Pt started on Lacosamide per neurology (note reviewed), they also recommend longer term EEG monitoring Pulm consult note reviewed Continue aspirin 81 mg daily Start atorvastatin 80 mg at bedtime Neurology consult, now on lacosamide, keppra 1g q12h, 2.5hr EEG pending MRI of the brain pending Echocardiogram TSH 1.9; Lipid panel was canceled, A1c pending Patient is full code Objective - Vital Signs Vital signs: Vital Signs Temp 98.3 F 02/26/23 05:00 Pulse 66 02/26/23 07:00 Resp 12 02/26/23 07:00 BP 162/84 02/26/23 07:00 Pulse Ox 94 L 02/26/23 06:00 FiO2 21 02/26/23 00:43 Intake & Output 02/25/23 02/26/23 02/26/23 18:59 06:59 18:59 Intake Total 10 Output Total 150 Balance -140 Weight 74.843 kg 74.843 kg Intake: IV 10 Invasive Line 2 10 Output: Urine 150 Other: Voiding Method External Catheter - Labs CBC & Chem 7: 02/26/23 06:53 02/26/23 05:27 Labs: Abnormal Lab Results - Last 24 Hours (Table) 02/26/23 02/26/23 02/26/23 Range/Units 03:44 04:30 05:27 BUN 25 H (7-17) mg/dL Glucose 154 H (74-99) mg/dL POC Glucose (mg/dL) 116 H 133 H (70-110) mg/dL
--- NOTE | 2023-02-26 14:46 | MR ---
EXAMINATION TYPE: MR brain wo con DATE OF EXAM: 02/26/2023 2:32 PM COMPARISON: CT brain C-spine 02/25/2023. CLINICAL INDICATION:Female, 62 years old with history of stroke; PHH, TECHNIQUE: Multi planar, multi sequence imaging was performed through the brain. No gadolinium was gi gladys. FINDINGS: The mahajan-white junctions, ventricular system, and cisterns appear unremarkable. Few patchy areas of T2 hyperintensity identified within the left frontal lobe and right parietal lobe subcortical white m atter.. Remote bilateral occipital lobe infarcts with gliosis demonstrate a. Midline structures show no abnormality. Diffusion-weighted imaging shows no evidence of restricted diffusion. The susceptibil ity weighted images show 2 foci of susceptibility artifact in the left temporal lobe from remote micr ohemorrhage. Age-appropriate cerebral volume loss. The bone marrow signal is within normal limits. The paranasal sinuses and globes are unremarkable. IMPRESSION: 1. No evidence of acute/subacute infarct. 2. Remote bilateral occipital lobe infarcts with gliosis demonstrated. 3. Few nonspecific white matter changes, likely secondary to small vessel ischemic disease.
--- NOTE | 2023-02-26 15:59 | CA ---
Transthoracic Echo Report Name: Fanny Schmitz Age: 62 Gender: F : 1960 Exam Date: 02/26/2023 08:53 Exam Location: [facility] Ht (in): 63 Wt (lb): 165 Ordering Physician: Trent Ibarra MD Attending/Referring Phys: Ball Racker Bi Rose Procedure CPT: Indications: CVA Cardiac Hx: Technical Quality: Fair Contrast 1: Total Dose (mL): Contrast 2: Total Dose (mL): MEASUREMENTS (Male / Female) Normal Values 2D ECHO LV Diastolic Diameter PLAX 4.2 cm 4.2 - 5.9 / 3.9 - 5.3 cm LV Systolic Diameter PLAX 3.1 cm IVS Diastolic Thickness 1.0 cm 0.6 - 1.0 / 0.6 - 0.9 cm LVPW Diastolic Thickness 1.2 cm 0.6 - 1.0 / 0.6 - 0.9 cm LV Relative Wall Thickness 0.5 RV Internal Dim ED PLAX 2.5 cm LVOT Diameter 2.0 cm Aortic Root Diameter 2.4 cm LA Systolic Diameter LX 2.1 cm 3.0 - 4.0 / 2.7 - 3.8 cm LV Diastolic Volume MOD BP 32.7 cm??? 67 - 155 / 56 - 104 cm??? LV Systolic Volume MOD BP 11.2 cm??? 22 - 58 / 19 - 49 cm??? LV Ejection Fraction MOD BP 65.8 % >= 55 % LV Cardiac Index MOD BP 780.3 cm???/min???m??? LV Diastolic Volume MOD 4C 39.2 cm??? LV Systolic Volume MOD 4C 11.4 cm??? LV Ejection Fraction MOD 4C 70.9 % LV Cardiac Index MOD 4C 1008.6 cm???/min???m??? LV Diastolic Length 4C 6.2 cm LV Systolic Length 4C 5.0 cm LV Diastolic Volume MOD 2C 26.8 cm??? LV Systolic Volume MOD 2C 10.5 cm??? LV Ejection Fraction MOD 2C 61.0 % LV Cardiac Index MOD 2C 593.5 cm???/min???m??? LV Diastolic Length 2C 6.3 cm LV Systolic Length 2C 5.3 cm LA Volume 32.6 cm??? 18 - 58 / 22 - 52 cm??? DOPPLER AV Peak Velocity 123.5 cm/s AV Peak Gradient 6.1 mmHg LVOT Peak Velocity 99.3 cm/s LVOT Peak Gradient 3.9 mmHg AV Area Cont Eq pk 2.4 cm??? MV Peak Velocity 78.3 cm/s MV Peak Gradient 2.5 mmHg MV Mean Velocity 37.2 cm/s MV Mean Gradient 0.7 mmHg MV Velocity Time Integral 22.1 cm Mitral E Point Velocity 45.7 cm/s Mitral A Point Velocity 62.5 cm/s Mitral E to A Ratio 0.7 MV Deceleration Time 201.8 ms MV E' Velocity 5.3 cm/s Mitral E to MV E' Ratio 8.7 FINDINGS Left Ventricle Normal LV size and wall thickness. Left ventricular ejection fraction is estimated at 30-35 %. Right Ventricle Normal right ventricular size. Right Atrium Normal right atrial size. Left Atrium Normal left atrial size. Mitral Valve Structurally normal mitral valve. Trace MR. Aortic Valve Mild AV calcification.no aortic valve stenosis or regurgitation. Tricuspid Valve Tricuspid valve not well visualized. Trace TR. Pulmonic Valve Pulmonic valve not well visualized. No pulmonic regurgitation. Pericardium Normal pericardium. Aorta Normal size aortic root . CONCLUSIONS Reduced LV systolic function 35% Normal LV size Previewed by: Dr. Ted Hamilton MD (Electronically Signed) Final Date: 26 February 2023 15:59
--- NOTE | 2023-02-27 00:49 | P.PN ---
Subjective Progress Note Date: 02/26/23 Patient was seen for a follow-up. Patient's sister was also present today. Apparently last night I was informed that patient is having recurrence seizure in which she is curling up, tensing up. Recommended patient receive Dilantin 1200 mg 1 dose, Ativan 1 mg every 5 minutes when necessary seizure, maximum 4 mg. Transfer to ICU. Patient apparently woke up this morning at 9 AM. No further seizures reported. On further discussing with the patient's family, it appears that patient had a stroke in 2021, when she was hospitalized for prolonged period of time. Patient also had a possible TIA versus CVA in summer, when she had an episode of complete confusion, that lasted for a day. Patient at home does not use any assistive device. When she goes outside, she uses a 4 pronged cane. Objective - Vital Signs Vital signs: Vital Signs Temp 97.6 F 02/26/23 12:00 Pulse 72 02/26/23 18:00 Resp 15 02/26/23 18:00 BP 126/83 02/26/23 18:00 Pulse Ox 93 L 02/26/23 18:00 FiO2 21 02/26/23 00:43 Intake & Output 02/25/23 02/26/23 02/26/23 18:59 06:59 18:59 Intake Total 10 100 Output Total 150 Balance -140 100 Weight 74.843 kg 74.843 kg Intake: IV 10 Invasive Line 2 10 Oral 100 Output: Urine 150 Other: Voiding Method External Catheter Bedpan External Catheter # Voids 0 - Exam Patient is alert and awake. She knows it is February 2023 and that she is in a medical building in [facility]. Does not remember name of the hospital. She is not familiar with this city, she lives in [place]. On cranial nerve examination, pupils are equal, round and reactive to light. Visual toribio revealed left homonymous hemianopia, which is more prominent to the midline in the upper visual field, but tapers laterally in the lower visual field. Face is symmetric and tongue protrudes to the midline. On muscle strength testing the strength is normal in the upper limbs. In the lower limbs, hip flexion is 3+ bilaterally. Ankle dorsiflexion is 5 on the right, 0 on the left. Patient has chronic left foot drop. Uncertain if related to stroke, or some other process. Patient says that she was told that she has Achilles tendon tightness. Plantar flexion is 5/5. Deep tendon reflexes are 1 at the biceps, 1 brachioradialis, 2 at the knees, 0 ankles and plantar is downgoing on the right, flat on the left. - Labs CBC & Chem 7: 02/26/23 06:53 02/26/23 05:27 Labs: Abnormal Lab Results - Last 24 Hours (Table) 02/25/23 02/26/23 02/26/23 Range/Units 07:35 03:44 04:30 BUN (7-17) mg/dL Glucose (74-99) mg/dL POC Glucose (mg/dL) 116 H 133 H (70-110) mg/dL Hemoglobin A1c 6.5 H (<=6.0) % 02/26/23 Range/Units 05:27 BUN 25 H (7-17) mg/dL Glucose 154 H (74-99) mg/dL POC Glucose (mg/dL) (70-110) mg/dL Hemoglobin A1c (<=6.0) % Assessment and Plan Assessment: * Seizure disorder, came with probable seizure, with postictal state. * Hypertension * History of CVA bilateral occipital region, with residual left homonymous h emianopia. * NO HISTORY OF ATRIAL FIBRILLATION * Acute kidney injury, resolved * Mildly elevated liver enzymes * History of pancreatitis * History of tobacco use Plan: * Patient's post ictal state has resolved. * Patient was taking Keppra 500 mg twice a day. Her dose of Keppra has been increased to 1000 mg twice a day, and also start Vimpat 100 mg twice a day. * Stat EEG was performed earlier today, which was abnormal sleep EEG due to diffuse disorganization, suggestive of generalized cerebral dysfunction as can be seen with toxic metabolic encephalopathy or related to diffuse structural brain abnormality or postictal effect. Clinical correlation is recommended. Some right temporal sharp waves were seen in early part of the study which may suggest underlying cortical irritability. No electrographic seizure was recorded. Suggest prolonged EEG for further evaluation. * Patient underwent prolonged EEG, which according to the verbal report from Dr. Garnett revealed lateralized periodic discharges involving the right temporal region. Background slowing consistent with diffuse encephalopathy encephalopathy. No electrographic seizures recorded. No electrographic evidence of status epilepticus. Official report pending. * Await medical records from recent hospitalization in [facility]. * Seizure precautions. * MRI of the brain without contrast revealed no evidence of acute/subacute infarct. Remote bilateral occipital lobe infarcts with gliosis demonstrated. Few nonspecific white matter changes, likely secondary to small vessel ischemic disease. I personally reviewed MRI, agree with the findings. * Discussed with family members in detail. Patient has history of "irregular heart rhythm", but they were never told about patient having atrial fibrillation. Continue aspirin 81 mg daily. * If patient remains stable overnight, then if medically stable, will be cleared from neurology standpoint to be discharged on Keppra 1000 mg twice a day and Vimpat 100 mg twice a day. * Recommend follow-up with neurologist within 1 week.
[2023-02-27 02:17] LABS: Chol/HDL Ratio 4.23 Ratio
[2023-02-27 04:30] LABS: African American GFR (CKD) 66 (>60 ml/min/1.73 sqM); Anion Gap 9 mmol/L; Basophils % (A) 0 %; Blood Urea Nitrogen 24 mg/dL (7-17); Calcium 9.6 mg/dL (8.4-10.2); Carbon Dioxide 26 mmol/L (22-30); Chloride 103 mmol/L (98-107); Eosinophils # (A) 0.2 k/uL (0-0.7); Eosinophils % (A) 3 %; Glucose 121 mg/dL (74-99); HCT 43.2 % (34.0-46.0); HGB 13.9 gm/dL (11.4-16.0); Lymphocytes # (A) 3.1 k/uL (1.0-4.8); Lymphocytes % (A) 36 %; MCH 28.5 pg (25.0-35.0); MCHC 32.3 g/dL (31.0-37.0); MCV 88.4 fL (80.0-100.0); Mean Platelet Volume 8.1; Monocytes # (A) 0.5 k/uL (0-1.0); Monocytes % (A) 6 %; Neutrophils # (A) 4.6 k/uL (1.3-7.7); Neutrophils % (A) 54 %; Non-African American GFR(CKD) 57 (>60 ml/min/1.73 sqM); Platelet Count 229 k/uL (150-450); Potassium 4.4 mmol/L (3.5-5.1); RBC 4.88 m/uL (3.80-5.40); RDW 14.9 % (11.5-15.5); Sodium 138 mmol/L (137-145); WBC 8.5 k/uL (3.8-10.6)
[2023-02-27] MEDS: HEPARIN SODIUM,PORCINE 5,000 UNIT/ML 1 ML VIAL SQ SCH ×2 (06:22→16:45)
[2023-02-27] MEDS: PANTOPRAZOLE 40 MG TABLET PO SCH (06:23)
[2023-02-27] MEDS: LEVOTHYROXINE 25 MCG TAB PO SCH (06:23)
[2023-02-27] MEDS ORDERED: RX INFO: IV CONTRAST WAS GIVEN 1 EACH MISC MISCELLANE PRN (09:20)
--- NOTE | 2023-02-27 09:20 | P.PN ---
Subjective Progress Note Date: 02/27/23 I'm seeing this patient in consultation today 02/26/2023 after the patient was A-teamed earlier this morning for seizure-like activity. Patient is 62-year-old female with medical history significant for relatively new onset seizure disorder that reportedly started March,. Patient also has a history of hypertension, atrial fibrillation, hypothyroidism, and pancreatitis. Patient is reportedly visiting her sister and is actually from [place]. Her primary care provider is Hansa Guevara out of [place], [place]. Patient was confused and unable to provide any meaningful history during interview. Her sister is at the bedside and provides most of this information. To my understanding, patient sta rted to experience seizures March,. Sister is unable to describe the seizures, and has not witnessed her previous seizures personally. Patient was reportedly started on Keppra, but developed diplopia prompting her physician to discontinue this. Since that time, patient has had recurrent bouts of seizures. Yesterday morning, the patient was found unresponsive on the floor next to her bed. It is unknown how long the patient was down on the floor. EMS was called, and in route to the hospital, she became combative. CT of the brain and c-spine on arrival showed decreased attenuation within the bilateral occipital lobes with ex vacuo dilatation of the left occipital horn suggesting remote process. On the right, the decreased attenuation may reflect relatively more recent vascular insult. EEG showed diffuse disorganization, severe slowing, suggestive of generalized cerebral dysfunction seen with toxic metabolic encephalopathy , diffuse structural abnormality, or possibly postictal effect. There were temporal sharp waves seen suggesting underlying cortical irritability. No EEG e vidence of seizure was recorded. CBC on arrival is unremarkable. BMP shows sodium 138, potassium 5.3, chloride 100, serum bicarb 31, BUN 29, creatinine 1.59, glucose 176. Liver function test showed ALT 45, AST of 35, alkaline phosphatase 190. Urine drug screen was negative. Chest x-ray showed a 1.1 cm right upper lung nodule that will need further evaluation on an outpatient basis. No acute cardiopulmonary process. Patient was admitted to the cardiac stepdown unit. Earlier this morning, the patient had sustained seizure-like activity over approximately 30 minutes according to the senior staff specialized employment. No generalized tonic-clonic activity. The patient reportedly would have intermittent bouts of absent staring and unresponsiveness that lasted about 20 seconds and then repeated. No complete recovery between episodes. This was terminated with a when necessary dose of Ativan. The patient was already on Keppra and Vimpat, and neurology recommended loading the patient with Dilantin. On my evaluation the patient is responsive and able to answer simple questions. She is oriented to person, breana ce, and time. Neuro examination is nonfocal. She is hemodynamically stable, on room air, in no acute distress.. Patient was transferred to the intensive care unit for closer monitoring. Plan is for prolonged EEG in the morning and follow-up brain MRI. On today's evaluation of a 2022, the patient is being seen for a follow-up. I'm glad to report to the patient did not have any significant seizures over the past 24 hours. The patient is currently on a combination of Vimpat and Keppra. She is doing well and she is alert and awake and she is communicating. MRI of the brain was completed and showed old occipital stroke and gliosis. Otherwise no acute abnormalities seen. At the same time, the patient underwent an echocardiogram yesterday that showed systolic heart failure with an ejection fraction of 30-35%. There was no other valvular abnormalities. The patient is awake and alert and she is communicating. No confusion. No altered mentation. The white cell count of 8.5 with hemoglobin of 15.9 and a platelet count of 229. BUN is 24 with a creatinine of 1.05 and a sodium level is at 138. LDL cholesterol level was 85. Otherwise, is hemodynamically stable. No other sig nificant events overnight. Her chest x-ray shows a pulmonology nodule in the right lung which is probably a granuloma. Her renal function is improved. Urine drug screen was negative. Objective - Vital Signs Vital signs: Vital Signs Temp 97.8 F 02/27/23 04:00 Pulse 76 02/27/23 07:00 Resp 12 02/27/23 07:00 BP 137/84 02/27/23 07:00 Pulse Ox 95 02/27/23 07:00 FiO2 21 02/26/23 00:43 Intake & Output 02/26/23 02/27/23 02/27/23 18:59 06:59 18:59 Intake Total 100 Balance 100 Weight 71.8 kg Intake: Oral 100 Other: Voiding Method Bedpan Bedpan External Catheter External Catheter # Voids 0 0 0 # Bowel Movements 1 - Exam GENERAL EXAM: Drowsy, 62-year-old white female, the patient is currently on room air oxygen. HEAD: Normocephalic and atraumatic EYES: Normal reaction of pupils, equal size. NOSE: Clear with pink turbinates. THROAT: No erythema or exudates. NECK: No masses, no JVD. CHEST: No chest wall deformity. LUNGS: Equal air entry with no crackles, wheeze, rhonchi or dullness. On room air. No conversational dyspnea or accessory muscle use.. CVS: S1 and S2 normal with no audible murmur, regular rhythm. No extra heart sounds ABDOMEN: No hepatosplenomegaly, active bowel sounds, no guarding or rigidity. SPINE: No scoliosis or deformity SKIN: No rashes CENTRAL NERVOUS SYSTEM: No focal deficits, tone is normal in all 4 extremities. The patient is awake and alert and communicating. EXTREMITIES: There is no peripheral edema, clubbing, or cyanosis. Peripheral pulses are intact. The patient is a chronic left foot drop. - Labs CBC & Chem 7: 02/27/23 03:58 02/27/23 03:58 Labs: Abnormal Lab Results - Last 24 Hours (Table) 02/25/23 02/26/23 02/27/23 Range/Units 07:35 06:53 03:58 BUN 24 H (7-17) mg/dL Creatinine 1.05 H (0.52-1.04) mg/dL Glucose 121 H (74-99) mg/dL Hemoglobin A1c 6.5 H (<=6.0) % Triglycerides 224.00 H (0.00-149.00) mg/dL VLDL Cholesterol, Calc 44.80 H (5.00-40.00) mg/dL Assessment and Plan Assessment: Recurrent seizures/status epilepticus, terminated with 1 mg of Ativan. EEG from last night showed diffuse disorganization, severe slowing, suggestive of generalized cerebral dysfunction seen with toxic metabolic encephalopathy, diffuse structural abnormality, or postictal effect. There were temporal sharp waves seen suggesting underlying cortical irritability. No EEG evidence of seizure was recorded at that time. EEG was done on 02/25/2023. The patient is currently on a combination of Keppra and. No seizure activity over the past 24 hours. MRI of the brain showing old occipital stroke. No acute abnormalities seen. Altered mental status, likely postictal , improved Remote CVA of the occipital lobe, CT of the brain and c-spine on arrival showed decreased attenuation within the bilateral occipital lobes with ex vacuo dilatation of the left occipital horn suggesting remote process. On the right, the decreased attenuation may reflect more recent vascular insult. No acute hemorrhage or mass effect. History of seizure disorder Acute kidney injury, improved Pulmonary nodule, chest x-ray showed a 1.1 cm right upper lung nodule Benign essential hypertension Reported history of atrial fibrillation, not anticoagulated, in normal sinus rhythm Hypothyroidism Chronic systolic heart failure with an ejection fraction of 3035% Chronic left foot drop, probably related to old CVA Plan: Continue same epilepticus medications Continue aspirin Echocardiogram was noted Continue Vimpat and continue the The same doses. Neurology is on the case. Proceed with a CAT scan of the chest to evaluate the pulmonary nodule. No seizures for now Should be able to transfer out of the intensive care unit.
[2023-02-27] MEDS: ASPIRIN 81 MG PO SCH (09:39)
[2023-02-27] MEDS: METOPROLOL SUCCINATE (ER) 50 MG TAB.ER.24H PO SCH (09:39)
[2023-02-27] MEDS: levETIRAcetam IV 500 MG/5 ML VIAL IVP SCH ×2 (09:46→21:20)
[2023-02-27] MEDS: LACOSAMIDE 50 MG TABLET PO SCH ×2 (10:02→21:18)
--- NOTE | 2023-02-27 11:47 | CT ---
EXAMINATION TYPE: CT brain wo con DATE OF EXAM: 02/27/2023 COMPARISON: 02/25/2023 HISTORY: Sudden headache, seizure, r/o stroke. CT DLP: 1144.4 mGycm Automated exposure control for dose reduction was used. FINDINGS: There is an areas of low attenuation involving the right occipital lobe bilaterally. Findings stable. Jugular system compatible with patient's age. No midline shift or mass effect. No acute intracranial hemorrhage. Orbits are symmetric. Minimal changes of chronic sinusitis. Changes of chronic mastoiditis. Calvarium is intact. Faint low attenuation in the white matter is suggestive of remote mild white matter micro vascular disease. IMPRESSION: 1. No acute hemorrhage or mass effect. Persistent low attenuation within the bilateral occipital lobe s. Correlate for previous ischemia. There is a tumor in
[2023-02-27 12:54] VITALS: BMI 28.0
--- NOTE | 2023-02-27 14:12 | P.PN ---
Subjective Progress Note Date: 02/27/23 Pt doing much better today, working with PT. There is confusion on whether patient previously had Afib/flutter or not, I asked the family to obtain records. Gen: in no apparent distress, resting comfortably in bed Eyes: PERRL, no scleral injection or icterus HENT: normocephalic, atraumatic, good hearing acuity, moist mucous membranes Neck: no tracheal deviation, full range of motion Resp: good air exchange, breathing comfortably with no accessory muscle use, no tactile fremitus CVS: good distal perfusion x 4, no pitting edema GI: soft, NTTP, ND, no hepatosplenomegaly : no suprapubic tenderness, no CVAT, rojas catheter not present MSK: no clubbing, no cyanosis, no noted contractures of extremities Skin: no noted rashes, petechiae; temperature of skin is appropriate Neuro: moving all extremities without signs of weakness, CN II-XII intact Hospital Course: 62-year-old woman with medical history of seizure disorder, hypertension, atrial flutter presented for evaluation of altered mental status. In the emergency room, patient was afebrile, 174/92, heart rate 68, 96% on room air. CBC de monstrated mild leukocytosis 10.9, otherwise unremarkable. His metabolic panel showed potassium of 5.3, CO2 of 31, BMI 29, creatinine of 1.59. Liver function test showed ALT 45, AST of 35, alkaline phosphatase 190. Troponin was less than 0.012. Coags are unremarkable. Urine tox screen was negative. Chest x-ray shows clear parenchyma bilaterally with possibly increased vascularity, there is a 1 cm nodule in the right upper lobe. Head/cervical spine CT showed decreased attenuation within the bilateral occipital lobes with X vacuo dilation of the left us a little horn suggesting remote process, on the right side there is decreased attenuation which may reflect relatively recent vascular insult. EKG shows normal sinus rhythm with right bundle branch block, low voltage EKG overall. Case was discussed with the emergency room provider and decision was made to admit patient to hospital for further evaluation of seizure-like activity. Assessment: Altered mental status, suspected seizures History of seizure disorder History of CVA in the occipital lobe Acute Kidney Injury, resolved Hypertension History of atrial flutter Plan: Pt is afebrile, 126/90, HR 86, 98% room air CBC, is unremarkable. BMP shows cr of 1.05 from 1.6, BUN 24 from 29 Echocardiogram = EF 30-35%, Interviewed patient's son and sister today - they will work on getting records regarding previous hospitalization for irregular heart rhythm Continue aspirin 81 mg daily Start atorvastatin 80 mg at bedtime Neurology consult, now on lacosamide, keppra 1g q12h, 2.5hr EEG pending MRI of the brain shows old occipital strokes Patient is full code Objective - Vital Signs Vital signs: Vital Signs Temp 98.1 F 02/27/23 08:00 Pulse 86 02/27/23 13:00 Resp 16 02/27/23 13:00 BP 126/90 02/27/23 12:00 Pulse Ox 98 02/27/23 10:00 FiO2 21 02/26/23 00:43 Intake & Output 02/26/23 02/27/23 02/27/23 18:59 06:59 18:59 Intake Total 100 100 Balance 100 100 Weight 71.8 kg 71.8 kg Intake: Oral 100 100 Other: Voiding Method Bedpan Bedpan Bedpan External Catheter External Catheter External Catheter # Voids 0 0 1 # Bowel Movements 1 1 - Labs CBC & Chem 7: 02/27/23 03:58 02/27/23 03:58 Labs: Abnormal Lab Results - Last 24 Hours (Table) 02/25/23 02/26/23 02/27/23 Range/Units 07:35 06:53 03:58 BUN 24 H (7-17) mg/dL Creatinine 1.05 H (0.52-1.04) mg/dL Glucose 121 H (74-99) mg/dL Hemoglobin A1c 6.5 H (<=6.0) % Triglycerides 224.00 H (0.00-149.00) mg/dL VLDL Cholesterol, Calc 44.80 H (5.00-40.00) mg/dL
--- NOTE | 2023-02-27 15:01 | CT ---
EXAMINATION TYPE: CT chest w con DATE OF EXAM: 02/27/2023 COMPARISON: None HISTORY: 62-year-old female History of mass TECHNIQUE: Contiguous axial scanning of the chest after the administration of 80 mL of Isovue 300. C oronal/sagittal reconstructions performed. CT DLP: 324.4mGycm. Automatic exposure control utilized for a dose reduction. FINDINGS: The heart is normal size without pericardial effusion. Minimal atherosclerotic arch calcifications with conventional arch vessel branching anatomy. Calcified precarinal and right hilar lymph nodes compatible with prior granulomatous disease. Right upper lobe calcified granuloma measuring 1.1 cm. Small groundglass patch measuring 7 mm anterio r right midlung, axial image 29. Mild strandy dependent atelectasis is present. No consolidation or p leural effusion. Visualized upper abdomen shows a oval cystic mass measuring 7.6 x 4.8 cm along the pancreatic tail re gion. This abuts the posterior wall of the gastric body. Numerous calcified granulomas in the spleen. Accentuated mid thoracic kyphosis. IMPRESSION: 1. Small 7 mm groundglass area in the anterior right midlung probably representing a small nonspecifi c infectious/inflammatory focus. 2. Evidence of prior granulomatous disease. 3. A 7.6 x 4.8 cm cystic mass at the pancreatic tail. 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 Correlate for history of prior pancreatitis. Consider follow-up CT in 3 months to assess fo r any involution.
[2023-02-28] MEDS: LORazepam 2 MG/ML INJ IV PRN ×3 (01:13→20:06)
[2023-02-28] MEDS: HEPARIN SODIUM,PORCINE 5,000 UNIT/ML 1 ML VIAL SQ SCH ×2 (04:46→18:16)
[2023-02-28] MEDS: LEVOTHYROXINE 25 MCG TAB PO SCH (05:41)
[2023-02-28] MEDS: levETIRAcetam IV 500 MG/5 ML VIAL IVP SCH (09:39)
[2023-02-28] MEDS: ASPIRIN 81 MG PO SCH (10:21)
[2023-02-28] MEDS: PANTOPRAZOLE 40 MG TABLET PO SCH (10:21)
[2023-02-28] MEDS: METOPROLOL SUCCINATE (ER) 50 MG TAB.ER.24H PO SCH (10:21)
[2023-02-28] MEDS: LACOSAMIDE 50 MG TABLET PO SCH ×2 (10:21→20:10)
--- NOTE | 2023-02-28 13:21 | P.PN ---
Subjective Progress Note Date: 02/28/23 Pt doing much better today. Still having intermittent episodes of confusion and headache. Discussed with neurology, they will uptitrate the keppra to 1500mg BID Gen: in no apparent distress, resting comfortably in bed Eyes: PERRL, no scleral injection or icterus HENT: normocephalic, atraumatic, good hearing acuity, moist mucous membranes Neck: no tracheal deviation, full range of motion Resp: good air exchange, breathing comfortably with no accessory muscle use, no tactile fremitus CVS: good distal perfusion x 4, no pitting edema GI: soft, NTTP, ND, no hepatosplenomegaly : no suprapubic tenderness, no CVAT, rojas catheter not present MSK: no clubbing, no cyanosis, no noted contractures of extremities Skin: no noted rashes, petechiae; temperature of skin is appropriate Neuro: moving all extremities without signs of weakness, CN II-XII intact Hospital Course: 62-year-old woman with medical history of seizure disorder, hypertension, atrial flutter presented for evaluation of altered mental status. In the emergency room, patient was afebrile, 174/92, heart rate 68, 96% on room air. CBC demonstrated mild leukocytosis 10.9, otherwise unremarkable. His metabolic panel showed potassium of 5.3, CO2 of 31, BMI 29, creatinine of 1.59. Liver function test showed ALT 45, AST of 35, alkaline phosphatase 190. Troponin was less than 0.012. Coags are unremarkable. Urine tox screen was negative. Chest x-ray shows clear parenchyma bilaterally with possibly increased vascularity, there is a 1 cm nodule in the right upper lobe. Head/cervical spine CT showed decreased attenuation within the bilateral occipital lobes with X vacuo dilation of the left us a little horn suggesting remote process, on the right side there is decreased attenuation which may reflect relatively recent vascular insult. EKG shows normal sinus rhythm with right bundle branch block, low voltage EKG overall. Case was discussed with the emergency room provider and decision was made to admit patient to hospital for further evaluation of seizure-like activity. MRI of the brain shows old occipital strokes. Echo demonstrated reduced EF, no WMA, no PFO, no thrombus. CT chest showed small 7mm groundglass area anterior right midlung. Assessment: Altered mental status, suspected seizures History of seizure disorder History of CVA in the occipital lobe Acute Kidney Injury, resolved Hypertension History of atrial flutter Plan: Pt is afebrile, 103/66, HR 70, 100% RA Chest CT done showed small 7mm groundglass area anterior right midlung Interviewed patient's sister today and reviewed previous medical records - hx of DVT s/p 3 mo of Eliquis ending 04/2022. S/p salpingo-hysterectomy for post-m enopausal bleeding - no evidence of malignancy noted. Continue aspirin 81 mg daily Start atorvastatin 80 mg at bedtime Neurology consult, now on lacosamide 100mg BID, keppra 1g q12h, they will increase keppra today. Patient is full code Objective - Vital Signs Vital signs: Vital Signs Temp 98.0 F 02/28/23 07:46 Pulse 70 02/28/23 07:46 Resp 16 02/28/23 07:46 BP 103/66 02/28/23 07:46 Pulse Ox 100 02/28/23 10:12 FiO2 21 02/28/23 10:12 Intake & Output 02/27/23 02/28/23 02/28/23 18:59 06:59 18:59 Intake Total 100 390 Balance 100 390 Weight 71.8 kg Intake: Oral 100 390 Other: Voiding Method Bedpan Toilet Toilet External Catheter # Voids 1 4 # Bowel Movements 1 - Labs CBC & Chem 7: 02/27/23 03:58 02/27/23 03:58
--- NOTE | 2023-02-28 14:32 | P.PN ---
Subjective Progress Note Date: 02/28/23 I'm seeing this patient in consultation today 02/26/2023 after the patient was A-teamed earlier this morning for seizure-like activity. Patient is 62-year-old female with medical history significant for relatively new onset seizure disorder that reportedly started March,. Patient also has a history of hypertension, atrial fibrillation, hypothyroidism, and pancreatitis. Patient is reportedly visiting her sister and is actually from [place]. Her primary care provider is Hansa Guevara out of [place], [place]. Patient was confused and unable to provide any meaningful history during interview. Her sister is at the bedside and provides most of this information. To my understanding, patient sta rted to experience seizures March,. Sister is unable to describe the seizures, and has not witnessed her previous seizures personally. Patient was reportedly started on Keppra, but developed diplopia prompting her physician to discontinue this. Since that time, patient has had recurrent bouts of seizures. Yesterday morning, the patient was found unresponsive on the floor next to her bed. It is unknown how long the patient was down on the floor. EMS was called, and in route to the hospital, she became combative. CT of the brain and c-spine on arrival showed decreased attenuation within the bilateral occipital lobes with ex vacuo dilatation of the left occipital horn suggesting remote process. On the right, the decreased attenuation may reflect relatively more recent vascular insult. EEG showed diffuse disorganization, severe slowing, suggestive of generalized cerebral dysfunction seen with toxic metabolic encephalopathy , diffuse structural abnormality, or possibly postictal effect. There were temporal sharp waves seen suggesting underlying cortical irritability. No EEG e vidence of seizure was recorded. CBC on arrival is unremarkable. BMP shows sodium 138, potassium 5.3, chloride 100, serum bicarb 31, BUN 29, creatinine 1.59, glucose 176. Liver function test showed ALT 45, AST of 35, alkaline phosphatase 190. Urine drug screen was negative. Chest x-ray showed a 1.1 cm right upper lung nodule that will need further evaluation on an outpatient basis. No acute cardiopulmonary process. Patient was admitted to the cardiac stepdown unit. Earlier this morning, the patient had sustained seizure-like activity over approximately 30 minutes according to the staff genetic counselor. No generalized tonic-clonic activity. The patient reportedly would have intermittent bouts of absent staring and unresponsiveness that lasted about 20 seconds and then repeated. No complete recovery between episodes. This was terminated with a when necessary dose of Ativan. The patient was already on Keppra and Vimpat, and neurology recommended loading the patient with Dilantin. On my evaluation the patient is responsive and able to answer simple questions. She is oriented to person, breana ce, and time. Neuro examination is nonfocal. She is hemodynamically stable, on room air, in no acute distress.. Patient was transferred to the intensive care unit for closer monitoring. Plan is for prolonged EEG in the morning and follow-up brain MRI. On today's evaluation of a 2022, the patient is being seen for a follow-up. I'm glad to report to the patient did not have any significant seizures over the past 24 hours. The patient is currently on a combination of Vimpat and Keppra. She is doing well and she is alert and awake and she is communicating. MRI of the brain was completed and showed old occipital stroke and gliosis. Otherwise no acute abnormalities seen. At the same time, the patient underwent an echocardiogram yesterday that showed systolic heart failure with an ejection fraction of 30-35%. There was no other valvular abnormalities. The patient is awake and alert and she is communicating. No confusion. No altered mentation. The white cell count of 8.5 with hemoglobin of 15.9 and a platelet count of 229. BUN is 24 with a creatinine of 1.05 and a sodium level is at 138. LDL cholesterol level was 85. Otherwise, is hemodynamically stable. No other sig nificant events overnight. Her chest x-ray shows a pulmonology nodule in the right lung which is probably a granuloma. Her renal function is improved. Urine drug screen was negative. 02/28/2023, the patient had another episode with a suspected to be seizure. The patient had headache, confusion and later on she was absent for a while. Following that, the Keppra dose titrated up to 1500 mg on a daily basis twice a day. She is resting comfortably in bed. No respiratory distress. She is on room air oxygen. This was single episode. No recurrent episodes since. CAT scan of the chest was also completed and the patient was found to have a 7 mm groundglass area and in the anterior aspect of the right midlung representing a small area of nonspecific infectious/inflammatory focus. There is evidence of prior granulomatous disease. There is a 7 cm cystic mass in the tail of the pancreas probably a pseudocyst Objective - Vital Signs Vital signs: Vital Signs Temp 98.0 F 02/28/23 07:46 Pulse 70 02/28/23 07:46 Resp 16 02/28/23 07:46 BP 103/66 02/28/23 07:46 Pulse Ox 100 02/28/23 10:12 FiO2 21 02/28/23 10:12 Intake & Output 02/27/23 02/28/23 02/28/23 18:59 06:59 18:59 Intake Total 100 390 Balance 100 390 Weight 71.8 kg Intake: Oral 100 390 Other: Voiding Method Bedpan Toilet External Catheter # Voids 1 4 # Bowel Movements 1 - Exam GENERAL EXAM: Drowsy, 62-year-old white female, the patient is currently on room air oxygen. HEAD: Normocephalic and atraumatic EYES: Normal reaction of pupils, equal size. NOSE: Clear with pink turbinates. THROAT: No erythema or exudates. NECK: No masses, no JVD. CHEST: No chest wall deformity. LUNGS: Equal air entry with no crackles, wheeze, rhonchi or dullness. On room air. No conversational dyspnea or accessory muscle use.. CVS: S1 and S2 normal with no audible murmur, regular rhythm. No extra heart sounds ABDOMEN: No hepatosplenomegaly, active bowel sounds, no guarding or rigidity. SPINE: No scoliosis or deformity SKIN: No rashes CENTRAL NERVOUS SYSTEM: No focal deficits, tone is normal in all 4 extremities. The patient is awake and alert and communicating. EXTREMITIES: There is no peripheral edema, clubbing, or cyanosis. Peripheral pulses are intact. The patient is a chronic left foot drop. - Labs CBC & Chem 7: 02/27/23 03:58 02/27/23 03:58 Assessment and Plan Assessment: Recurrent seizures/status epilepticus, terminated with 1 mg of Ativan. EEG from last night showed diffuse disorganization, severe slowing, suggestive of generalized cerebral dysfunction seen with toxic metabolic encephalopathy, diffuse structural abnormality, or postictal effect. There were temporal sharp waves seen suggesting underlying cortical irritability. No EEG evidence of seizure was recorded at that time. EEG was done on 02/25/2023. The patient is currently on a combination of Keppra and. No seizure activity over the past 24 hours. MRI of the brain showing old occipital stroke. No acute abnormalities seen. Patient had another bout of episode of seizure and the Keppra dose was modified Altered mental status, still having fluctuation in mental status Remote CVA of the occipital lobe, CT of the brain and c-spine on arrival showed decreased attenuation within the bilateral occipital lobes with ex vacuo dilatation of the left occipital horn suggesting remote process. On the right, the decreased attenuation may reflect more recent vascular insult. No acute hemorrhage or mass effect. History of seizure disorder Acute kidney injury, improved Pulmonary nodule, chest x-ray showed a 1.1 cm right upper lung nodule Benign essential hypertension Reported history of atrial fibrillation, not anticoagulated, in normal sinus rhythm Hypothyroidism Chronic systolic heart failure with an ejection fraction of 3035% Chronic left foot drop, probably related to old CVA Old granulomatous changes in the lungs based on CAT scan findings Pancreatic pseudocyst Plan: Continue treatment of seizures per neurology and Keppra dose of the modified to 1.5 g twice a day Continue Vimpat 100 mg twice a day Continue aspirin Echocardiogram was noted Continue Vimpat and continue the The same doses. Neurology is on the case. CAT scan of the chest noted No seizures for now Patient has already been transferred out of the intensive care unit
[2023-02-28] MEDS: ACETAMINOPHEN TAB 325 MG TAB PO PRN (18:25)
[2023-02-28] MEDS: levETIRAcetam 500 MG TAB PO SCH (20:10)
[2023-03-01 02:54] VITALS: TEMP 98.2
[2023-03-01] MEDS: LEVOTHYROXINE 25 MCG TAB PO SCH (06:06)
[2023-03-01] MEDS: HEPARIN SODIUM,PORCINE 5,000 UNIT/ML 1 ML VIAL SQ SCH (06:06)
[2023-03-01] MEDS: LORazepam 2 MG/ML INJ IV PRN (06:30)
[2023-03-01 08:02] VITALS: BP 115/70; PULSE 69; RESP 16
[2023-03-01] MEDS: PANTOPRAZOLE 40 MG TABLET PO SCH (09:10)
[2023-03-01] MEDS: levETIRAcetam 500 MG TAB PO SCH (09:10)
[2023-03-01] MEDS: ASPIRIN 81 MG PO SCH (09:10)
[2023-03-01] MEDS: LACOSAMIDE 50 MG TABLET PO SCH (09:11)
[2023-03-01] MEDS: METOPROLOL SUCCINATE (ER) 50 MG TAB.ER.24H PO SCH (09:11)
--- NOTE | 2023-03-01 12:31 | P.PN ---
Subjective Progress Note Date: 03/01/23 I'm seeing this patient in consultation today 02/26/2023 after the patient was A-teamed earlier this morning for seizure-like activity. Patient is 62-year-old female with medical history significant for relatively new onset seizure disorder that reportedly started March,. Patient also has a history of hypertension, atrial fibrillation, hypothyroidism, and pancreatitis. Patient is reportedly visiting her sister and is actually from [place]. Her primary care provider is Hansa Guevara out of [place], [place]. Patient was confused and unable to provide any meaningful history during interview. Her sister is at the bedside and provides most of this information. To my understanding, patient sta rted to experience seizures March,. Sister is unable to describe the seizures, and has not witnessed her previous seizures personally. Patient was reportedly started on Keppra, but developed diplopia prompting her physician to discontinue this. Since that time, patient has had recurrent bouts of seizures. Yesterday morning, the patient was found unresponsive on the floor next to her bed. It is unknown how long the patient was down on the floor. EMS was called, and in route to the hospital, she became combative. CT of the brain and c-spine on arrival showed decreased attenuation within the bilateral occipital lobes with ex vacuo dilatation of the left occipital horn suggesting remote process. On the right, the decreased attenuation may reflect relatively more recent vascular insult. EEG showed diffuse disorganization, severe slowing, suggestive of generalized cerebral dysfunction seen with toxic metabolic encephalopathy , diffuse structural abnormality, or possibly postictal effect. There were temporal sharp waves seen suggesting underlying cortical irritability. No EEG e vidence of seizure was recorded. CBC on arrival is unremarkable. BMP shows sodium 138, potassium 5.3, chloride 100, serum bicarb 31, BUN 29, creatinine 1.59, glucose 176. Liver function test showed ALT 45, AST of 35, alkaline phosphatase 190. Urine drug screen was negative. Chest x-ray showed a 1.1 cm right upper lung nodule that will need further evaluation on an outpatient basis. No acute cardiopulmonary process. Patient was admitted to the cardiac stepdown unit. Earlier this morning, the patient had sustained seizure-like activity over approximately 30 minutes according to the bar staff. No generalized tonic-clonic activity. The patient reportedly would have intermittent bouts of absent staring and unresponsiveness that lasted about 20 seconds and then repeated. No complete recovery between episodes. This was terminated with a when necessary dose of Ativan. The patient was already on Keppra and Vimpat, and neurology recommended loading the patient with Dilantin. On my evaluation the patient is responsive and able to answer simple questions. She is oriented to person, breana ce, and time. Neuro examination is nonfocal. She is hemodynamically stable, on room air, in no acute distress.. Patient was transferred to the intensive care unit for closer monitoring. Plan is for prolonged EEG in the morning and follow-up brain MRI. On today's evaluation of a 2022, the patient is being seen for a follow-up. I'm glad to report to the patient did not have any significant seizures over the past 24 hours. The patient is currently on a combination of Vimpat and Keppra. She is doing well and she is alert and awake and she is communicating. MRI of the brain was completed and showed old occipital stroke and gliosis. Otherwise no acute abnormalities seen. At the same time, the patient underwent an echocardiogram yesterday that showed systolic heart failure with an ejection fraction of 30-35%. There was no other valvular abnormalities. The patient is awake and alert and she is communicating. No confusion. No altered mentation. The white cell count of 8.5 with hemoglobin of 15.9 and a platelet count of 229. BUN is 24 with a creatinine of 1.05 and a sodium level is at 138. LDL cholesterol level was 85. Otherwise, is hemodynamically stable. No other sig nificant events overnight. Her chest x-ray shows a pulmonology nodule in the right lung which is probably a granuloma. Her renal function is improved. Urine drug screen was negative. 02/28/2023, the patient had another episode with a suspected to be seizure. The patient had headache, confusion and later on she was absent for a while. Following that, the Keppra dose titrated up to 1500 mg on a daily basis twice a day. She is resting comfortably in bed. No respiratory distress. She is on room air oxygen. This was single episode. No recurrent episodes since. CAT scan of the chest was also completed and the patient was found to have a 7 mm groundglass area and in the anterior aspect of the right midlung representing a small area of nonspecific infectious/inflammatory focus. There is evidence of prior granulomatous disease. There is a 7 cm cystic mass in the tail of the pancreas probably a pseudocyst A 03/01 2023, the patient is having some questionable neurologic manifestations of seizure and neurology is on the case. I'm not certain if these are active seizures. The case is to be reviewed by neurology. She remains on Keppra and Vimpat. No respiratory difficulties and she remains on room air oxygen. Objective - Vital Signs Vital signs: Vital Signs Temp 98.2 F 03/01/23 07:33 Pulse 69 03/01/23 07:33 Resp 16 03/01/23 07:33 BP 115/70 03/01/23 07:33 Pulse Ox 95 03/01/23 08:52 FiO2 21 03/01/23 08:52 Intake & Output 02/28/23 03/01/23 03/01/23 18:59 06:59 18:59 Other: Voiding Method Toilet Toilet # Voids 1 4 - Exam GENERAL EXAM: Drowsy, 62-year-old white female, the patient is currently on room air oxygen. HEAD: Normocephalic and atraumatic EYES: Normal reaction of pupils, equal size. NOSE: Clear with pink turbinates. THROAT: No erythema or exudates. NECK: No masses, no JVD. CHEST: No chest wall deformity. LUNGS: Equal air entry with no crackles, wheeze, rhonchi or dullness. On room air. No conversational dyspnea or accessory muscle use.. CVS: S1 and S2 normal with no audible murmur, regular rhythm. No extra heart sounds ABDOMEN: No hepatosplenomegaly, active bowel sounds, no guarding or rigidity. SPINE: No scoliosis or deformity SKIN: No rashes CENTRAL NERVOUS SYSTEM: No focal deficits, tone is normal in all 4 extremities. The patient is awake and alert and communicating. EXTREMITIES: There is no peripheral edema, clubbing, or cyanosis. Peripheral pulses are intact. The patient is a chronic left foot drop. - Labs CBC & Chem 7: 02/27/23 03:58 02/27/23 03:58 Assessment and Plan Assessment: Recurrent seizures/status epilepticus, terminated with 1 mg of Ativan. EEG from last night showed diffuse disorganization, severe slowing, suggestive of generalized cerebral dysfunction seen with toxic metabolic encephalopathy, diffuse structural abnormality, or postictal effect. There were temporal sharp waves seen suggesting underlying cortical irritability. No EEG evidence of seizure was recorded at that time. EEG was done on 02/25/2023. The patient is currently on a combination of Keppra and. No seizure activity over the past 24 hours. MRI of the brain showing old occipital stroke. No acute abnormalities seen. Patient had another bout of episode of seizure and the Keppra dose was modified Altered mental status, still having fluctuation in mental status Remote CVA of the occipital lobe, CT of the brain and c-spine on arrival showed decreased attenuation within the bilateral occipital lobes with ex vacuo dilatation of the left occipital horn suggesting remote process. On the right, the decreased attenuation may reflect more recent vascular insult. No acute hemorrhage or mass effect. History of seizure disorder Acute kidney injury, improved Pulmonary nodule, chest x-ray showed a 1.1 cm right upper lung nodule Benign essential hypertension Reported history of atrial fibrillation, not anticoagulated, in normal sinus rhythm Hypothyroidism Chronic systolic heart failure with an ejection fraction of 3035% Chronic left foot drop, probably related to old CVA Old granulomatous changes in the lungs based on CAT scan findings Pancreatic pseudocyst Plan: Continue Keppra Continue Vimpat 100 mg twice a day Continue aspirin Echocardiogram was noted Continue Vimpat and continue the The same doses. Neurology is on the case. CAT scan of the chest noted No seizures for now No active pulmonary or cardiac catheterization I'm going to sign off the case
--- NOTE | 2023-03-01 12:36 | P.PN ---
Subjective Progress Note Date: 02/28/23 02/27/2023: Patient was seen for a follow-up. Patient's sister Mayra was also present today. Apparently patient had 3 seizures since yesterday. One happened 10 PM last night, then 2 AM this morning and 9:30 AM today. Per patient's sister's description each of them lasted for 10 minutes. She would be talking, then she breaks out crying, grabs her head because of the headache and then she tells her sister "you look funny", and she complains of blurred vision. She closes her eyes, balls up in position and is "out of it". She comes out of it within 10 minutes. Patient states "sometimes I remember, sometimes don't". There is no blank stare, or conversion. She does not talk usually during this spell. She does not bite her tongue or loses control of urine. 02/26/2023: Patient was seen for a follow-up. Patient's sister was also present today. Apparently last night I was informed that patient is having recurrence seizure in which she is curling up, tensing up. Recommended patient receive Dilantin 1200 mg 1 dose, Ativan 1 mg every 5 minutes when necessary seizure, maximum 4 mg. Transfer to ICU. Patient apparently woke up this morning at 9 AM. No further seizures reported. On further discussing with the patient's family, it appears that patient had a stroke in 2021, when she was hospitalized for prolonged period of time. Patient also had a possible TIA versus CVA in summer of 2017, when she had an episode of complete confusion, that lasted for a day. Patient at home does not use any assistive device. When she goes outside, she uses a 4 pronged cane. Objective - Vital Signs Vital signs: Vital Signs Temp 98.5 F 02/28/23 13:09 Pulse 74 02/28/23 13:09 Resp 16 02/28/23 13:09 BP 110/76 02/28/23 13:09 Pulse Ox 96 02/28/23 13:09 FiO2 21 02/28/23 10:12 Intake & Output 02/27/23 02/28/23 02/28/23 18:59 06:59 18:59 Intake Total 100 390 Balance 100 390 Weight 71.8 kg Intake: Oral 100 390 Other: Voiding Method Bedpan Toilet Toilet External Catheter # Voids 1 4 # Bowel Movements 1 - Exam Patient is alert and awake. She knows it is February 2023 and that she is in a medical building in [facility]. Does not remember name of the hospital. She is not familiar with this city, she lives in [place]. On cranial nerve examination, pupils are equal, round and reactive to light. Visual toribio revealed left homonymous hemianopia, which is more prominent to the midline in the upper visual field, but tapers laterally in the lower visual field. Face is symmetric and tongue protrudes to the midline. On muscle strength testing the strength is normal in the upper limbs. In the lower limbs, hip flexion is 3+ bilaterally. Ankle dorsiflexion is 5 on the ri ght, 0 on the left. Patient has chronic left foot drop. Uncertain if related to stroke, or some other process. Patient says that she was told that she has Achilles tendon tightness. Plantar flexion is 5/5. Deep tendon reflexes are 1 at the biceps, 1 brachioradialis, 2 at the knees, 0 ankles and plantar is downgoing on the right, flat on the left. - Labs CBC & Chem 7: 02/27/23 03:58 02/27/23 03:58 Assessment and Plan Assessment: * Seizure disorder, came with breakthrough seizure with postictal state. * Hypertension * History of CVA bilateral occipital region, with residual left homonymous hemianopia. * NO HISTORY OF ATRIAL FIBRILLATION * Acute kidney injury, resolved * Mildly elevated liver enzymes * History of pancreatitis * History of tobacco use Plan: * Patient's post ictal state has resolved. * Patient was taking Keppra 500 mg twice a day. Her dose of Keppra has been increased to 1000 mg twice a day, and also start Vimpat 100 mg twice a day. P atient had 3 seizure types spells last night. We will increase Keppra to 1500 mg twice a day. * Stat EEG was performed earlier today, which was abnormal sleep EEG due to diffuse disorganization, suggestive of generalized cerebral dysfunction as can be seen with toxic metabolic encephalopathy or related to diffuse structural brain abnormality or postictal effect. Clinical correlation is recommended. Some right temporal sharp waves were seen in early part of the study which may suggest underlying cortical irritability. No electrographic seizure was recorded. Suggest prolonged EEG for further evaluation. * Patient underwent prolonged EEG, which according to the verbal report from Dr. Garnett revealed lateralized periodic discharges involving the right temporal region. Background slowing consistent with diffuse encephalopathy encephalopathy. No electrographic seizures recorded. No electrographic evidence of status epilepticus. Official report pending. * Await medical records from recent hospitalization in [facility]. * Seizure precautions. * MRI of the brain without contrast revealed no evidence of acute/subacute infarct. Remote bilateral occipital lobe infarcts with gliosis demonstrated. Few nonspecific white matter changes, likely secondary to small vessel ischemic disease. I personally reviewed MRI, agree with the findings. * Discussed with family members in detail. Patient has history of "irregular heart rhythm", but they were never told about patient having atrial fibrillation. Continue aspirin 81 mg daily. * If patient remains stable overnight, and remains seizure free for 24 hours, then may discharged on Keppra 1500 mg twice a day and Vimpat 100 mg twice a day. * Recommend follow-up with neurologist within 1 week after discharge.
[2023-03-01] MEDS: ACETAMINOPHEN TAB 325 MG TAB PO PRN (12:49)
--- NOTE | 2023-03-01 17:44 | P.DS ---
Providers Date of admission: 02/25/23 10:58 Expected date of discharge: 03/01/23 Attending physician: Trent Ibarra MD Consults: 02/25/23 10:56 Consult Physician Routine Consulting Provider: Deacon Chau Consult Reason/Comments: Possible stroke Do you want consulting provider notified?: Yes 02/26/23 03:45 Consult Physician Routine Consulting Provider: Shital Patino Consult Reason/Comments: icu management Do you want consulting provider notified?: Yes Primary care physician: Stated None Hospital Course: Assessment: Altered mental status, suspected seizures History of seizure disorder History of CVA in the occipital lobe Acute Kidney Injury, resolved Hypertension History of atrial flutter Hospital Course: 62-year-old woman with medical history of seizure disorder, hypertension, atrial flutter presented for evaluation of altered mental status. In the emergency room, patient was afebrile, 174/92, heart rate 68, 96% on room air. CBC demonstrated mild leukocytosis 10.9, otherwise unremarkable. His metabolic panel showed potassium of 5.3, CO2 of 31, BMI 29, creatinine of 1.59. Liver function test showed ALT 45, AST of 35, alkaline phosphatase 190. Troponin was less than 0.012. Coags are unremarkable. Urine tox screen was negative. Chest x-ray shows clear parenchyma bilaterally with possibly increased vascularity, there is a 1 cm nodule in the right upper lobe. Head/cervical spine CT showed decreased attenuation within the bilateral occipital lobes with X vacuo dilation of the left us a little horn suggesting remote process, on the right side there is decreased attenuation which may reflect relatively recent vascular insult. EKG shows normal sinus rhythm with right bundle branch block, low voltage EKG overall. Case was discussed with the emergency room provider and decision was made to admit patient to hospital for further evaluation of seizure-like activity. MRI of the brain shows old occipital strokes. Echo demonstrated red uced EF, no WMA, no PFO, no thrombus. CT chest showed small 7mm groundglass area anterior right midlung. Pt was stablized on the floor and was discharged on lacosamide and keppra with instructions to f/u with PCP and neurology. I spent 38 minutes coordinating this discharge on 03/01 Gen: in no apparent distress, resting comfortably in bed Eyes: PERRL, no scleral injection or icterus HENT: normocephalic, atraumatic, good hearing acuity, moist mucous membranes Neck: no tracheal deviation, full range of motion Resp: good air exchange, breathing comfortably with no accessory muscle use, no tactile fremitus CVS: good distal perfusion x 4, no pitting edema GI: soft, NTTP, ND, no hepatosplenomegaly : no suprapubic tenderness, no CVAT, rojas catheter not present MSK: no clubbing, no cyanosis, no noted contractures of extremities Skin: no noted rashes, petechiae; temperature of skin is appropriate Neuro: moving all extremities without signs of weakness, CN II-XII intact Patient Condition at Discharge: Good Plan - Discharge Summary Discharge Rx Participant: Yes New Discharge Prescriptions: New Acetaminophen Tab [Tylenol] 650 mg PO Q6HR PRN tab PRN Reason: Fever and/ or Mild Pain Lacosamide 100 mg PO BID #60 tab levETIRAcetam [Keppra] 1,000 mg PO Q12HR #90 tab Continue Omeprazole 20 mg PO DAILY Metoprolol Succinate [Toprol XL] 50 mg PO DAILY Levothyroxine Sodium [Synthroid] 25 mcg PO DAILY Aspirin 81 mg PO DAILY Discontinued levETIRAcetam [Keppra] 500 mg PO BID Discharge Medication List Aspirin 81 mg PO DAILY 02/25/23 [History] Levothyroxine Sodium [Synthroid] 25 mcg PO DAILY 02/25/23 [History] Metoprolol Succinate [Toprol XL] 50 mg PO DAILY 02/25/23 [History] Omeprazole 20 mg PO DAILY 02/25/23 [History] Acetaminophen Tab [Tylenol] 650 mg PO Q6HR PRN tab 03/01/23 [Rx] Lacosamide 100 mg PO BID #60 tab 03/01/23 [Rx] levETIRAcetam [Keppra] 1,000 mg PO Q12HR #90 tab 03/01/23 [Rx] Follow up Appointment(s)/Referral(s): None,Stated [Primary Care Provider] - 1-2 days Patient Instructions/Handouts: Levetiracetam (By mouth), Lacosamide (By mouth) Discharge Disposition: HOME SELF-CARE
--- NOTE | 2023-03-04 15:31 | EEG ---
ELECTROENCEPHALOGRAM REPORT ELECTROENCEPHALOGRAM (EEG) REPORT: TECHNIQUE: This is a report from a prolonged 2.5-hour inpatient digital EEG performed using the 10/20 international electrode placement system. HISTORY: The patient found in her room yesterday on the floor after a possible seizure. The patient was confused and nonresponsive. CURRENT MEDICATIONS: 1. Aspirin. 2. Vimpat. 3. Keppra. 4. Synthroid. 5. Ativan. 6. Toprol. 7. Protonix. FINDINGS: Recording start time: 02/26/2023 at 10:35 a.m. Recording end time: 02/26/2023 at 1306. EVENTS: During this 2.5-hour continuous video EEG, no clinical or electrographic seizures were recorded. BACKGROUND: Background frequencies were seen in the unsustained 6-7 hertz range with some intermixed lower frequencies. These were at times better defined over the left posterior quadrants compared to the right, this may in part be because of the location of interictal abnormality, please see section on abnormalities below. ACTIVATION: Hyperventilation: Not performed. Photic stimulation: Mild symmetric driving seen. Sleep: Stages I and II sleep noted. Please note that the patient was drowsy or asleep for a significant portion of this recording. ABNORMALITIES: 1. Frequent single spike and slow waves were seen over the right posterior temporal, T6 region. 2. Some of these had a more anterior field of spread, T4 and F8. 3. Right hemispheric greater than left hemispheric slow wave activity was seen. This slow-wave activity demonstrated greater focality over the right posterior temporal greater than right midtemporal region. 4. Frequencies were in the 4-6 hertz range. IMPRESSION: Abnormal 2.5-hour video EEG. No clinical or electrographic seizures were recorded. Frequent interictal epileptiform activity was seen over the right posterior temporal region in the form of spike and slow waves. At times, this was semi periodic with a frequency of 1 hertz. These findings indicate the presence of an epileptiform focus involving the right posterior temporal region. These findings can be seen with the presence of a structural abnormality of epileptiform origin involving the corresponding region. These findings indicate moderate diffuse cerebral dysfunction with greater focal involvement of the right posterior temporal region. These findings were called in preliminary format to the consulting Neurologist on 02/26/2023 at 1630 and then in final format on 02/27/2023 at 11:00 a.m. STEVEN / JACKN: [id number] /
== END 2023-03-01 13:48 | disposition home or self-care (01) | DRG 53 ==
LOC: EC 07:06 → 3SCARD 10:58 → 2SICU 02-26 04:22 → 5NMEDONC 02-27 15:13
PROVIDERS: ADMIT Internal Medicine; ATTEND Internal Medicine
DX: G40.901 Epilepsy, unspecified, not intractable, with status epilepticus (principal); N17.9 Acute kidney failure, unspecified; I48.92 Unspecified atrial flutter; I50.22 Chronic systolic (congestive) heart failure; I11.0 Hypertensive heart disease with heart failure; I48.91 Unspecified atrial fibrillation; K86.3 Pseudocyst of pancreas; H53.462 Homonymous bilateral field defects, left side; I69.30 Unspecified sequelae of cerebral infarction; E03.9 Hypothyroidism, unspecified; I45.10 Unspecified right bundle-branch block; M21.372 Foot drop, left foot; K21.9 Gastro-esophageal reflux disease without esophagitis; R91.1 Solitary pulmonary nodule; Z28.310 Unvaccinated for COVID-19; Z87.19 Personal history of other diseases of the digestive system; Z87.09 Personal history of other diseases of the respiratory system; Z79.899 Other long term (current) drug therapy; Z79.82 Long term (current) use of aspirin; Z79.890 Hormone replacement therapy
CPT/HCPCS: 36415; 70450; 70551; 71045; 71260; 72125; 80048; 80053; 80061; 80306; 83036; 83735; 84443; 84484; 85025; 85610; 85730; 87324; 93005; 93306; 94760; 95713; 95819; 99285

== ENCOUNTER 2023-06-23 15:55 | Observation (INO) | payer OTHER ==
[2023-06-23 16:28] LABS: Glucose,Whole Blood 243 mg/dL (70-110)
[2023-06-23] MEDS ORDERED: SODIUM CHLORIDE 0.9% 1,000 ML IV ONE (16:50)
[2023-06-23 17:17] LABS: Glucose,Whole Blood 248 mg/dL (70-110)
[2023-06-23 17:30] LABS: Basophils # (A) 0.1 k/uL (0-0.2); Basophils % (A) 1 %; Eosinophils # (A) 0.2 k/uL (0-0.7); Eosinophils % (A) 2 %; HCT 41.6 % (34.0-46.0); HGB 13.9 gm/dL (11.4-16.0); Lymphocytes # (A) 3.4 k/uL (1.0-4.8); Lymphocytes % (A) 34 %; MCHC 33.4 g/dL (31.0-37.0); MCV 86.8 fL (80.0-100.0); Mean Platelet Volume 7.8; Monocytes # (A) 0.4 k/uL (0-1.0); Monocytes % (A) 4 %; Neutrophils # (A) 5.5 k/uL (1.3-7.7); Neutrophils % (A) 57 %; Platelet Count 227 k/uL (150-450); RBC 4.79 m/uL (3.80-5.40); WBC 9.8 k/uL (3.8-10.6)
[2023-06-23 18:11] LABS: ALT 20 U/L (4-34); AST 27 U/L (14-36); African American GFR (CKD) >90 (>60 ml/min/1.73 sqM); Albumin 4.1 g/dL (3.5-5.0); Alkaline Phosphatase 185 U/L (38-126); Amylase 176 U/L (30-110); Anion Gap 10 mmol/L; Blood Urea Nitrogen 24 mg/dL (7-17); Calcium 9.6 mg/dL (8.4-10.2); Carbon Dioxide 25 mmol/L (22-30); Chloride 100 mmol/L (98-107); Glucose 248 mg/dL (74-99); Lipase 1484 U/L (23-300); Non-African American GFR(CKD) 81 (>60 ml/min/1.73 sqM); Potassium 5.1 mmol/L (3.5-5.1); Sodium 135 mmol/L (137-145); Total Bilirubin 0.5 mg/dL (0.2-1.3); Total Protein 7.7 g/dL (6.3-8.2)
--- NOTE | 2023-06-23 19:38 | CT ---
EXAMINATION TYPE: CT abdomen pelvis w con CT DLP: 992.6 mGycm, Automated exposure control for dose reduction was used. DATE OF EXAM: 06/23/2023 7:05 PM COMPARISON: None. CLINICAL INDICATION:Female, 62 years old with history of lower abd pain. TECHNIQUE: Axial CT of the abdomen and pelvis. Sagittal and coronal reformats were created on a [employer]-transfection workstation. Contrast used:100 ml mL of Isovue 300 with IV Contrast, (none if empty) Oral contrast used: without Oral Contrast (none if empty) FINDINGS: LOWER CHEST: Unremarkable ABDOMEN LIVER: Scattered hepatic granulomas are identified. There is a lobulated and linear region of hypoatt enuation measuring 4.4 cm in the axial plane within the right hepatic lobe. GALLBLADDER AND BILE DUCTS: Unremarkable. PANCREAS: Pancreas is overall atrophic in appearance Large multilobulated cystic areas noted involvin g the pancreatic tail, largest portion measures 7.1 cm. Of note, the smaller 3 cm fluid collection do es abut the transverse colon. SPLEEN: Scattered granulomas identified. ADRENAL GLANDS: Unremarkable. KIDNEYS AND URETERS: No evidence of hydronephrosis or renal calculus. The ureters are unremarkable. PELVIS BLADDER: Unremarkable REPRODUCTIVE: Cystic changes of the ovaries are present. ABDOMEN & PELVIS STOMACH AND BOWEL: Stomach and duodenum are unremarkable. Mild edematous appearance of samayoa of the t he sigmoid and descending colon No evidence of bowel obstruction. PERITONEUM/RETROPERITONEUM: No evidence of pneumoperitoneum or free fluid. VASCULATURE: Moderate atherosclerotic calcifications are present throughout the abdominal aorta and i ts branches. No evidence of aortic aneurysm. MUSCULOSKELETAL: No acute osseous abnormalities. Mild disc degeneration changes are present throughou t the thoracolumbar spine. LYMPH NODES: No gross evidence for lymphadenopathy. SOFT TISSUE/ABDOMINAL WALL: Unremarkable IMPRESSION: 1. Atrophic appearance of the pancreas with large cystic lesions near the pancreatic tail. Findings favor sequela such as pseudocyst of prior pancreatitis. 2. Nonspecific hypoattenuated region of the right hepatic lobe, with potential filling defect within a branch of the hepatic artery (see arrow), felt potentially to represent hepatic infarct. This findi ng is likely related to impression #1 and is sequlae of prior pancreatitis. 3. Mild wall edema of the descending and sigmoid colon, felt related to nonspecific colitis.
--- NOTE | 2023-06-23 20:41 | ED ---
General Adult HPI - General Chief complaint: Recheck/Abnormal Lab/Rx Stated complaint: Hyperglycemia Time Seen by Provider: 06/23/23 16:32 Source: patient, RN notes reviewed Mode of arrival: ambulatory Limitations: no limitations - History of Present Illness Initial comments: 62-year-old female presents emergency department chief complaint of elevated b lood sugar and abdominal pain. She states that she was evaluated by her neurologist and was told that her A1c was 10. The patient does not have a primary care provider [place]. Patient states that she was told to come to the emergency department for evaluation of hypergl ycemia. Patient admits to lower abdominal pain. She states that this pain comes in waves seen a few seconds at a time. She admits to nausea without vomiting. Denies diarrhea. Denies recent fever. - Related Data Home Medications Medication Instructions Recorded Confirmed Aspirin 81 mg PO DAILY 02/25/23 02/25/23 Levothyroxine Sodium [Synthroid] 25 mcg PO DAILY 02/25/23 02/25/23 Metoprolol Succinate [Toprol XL] 50 mg PO DAILY 02/25/23 02/25/23 Omeprazole 20 mg PO DAILY 02/25/23 02/25/23 Previous Rx's Medication Instructions Recorded Acetaminophen Tab [Tylenol] 650 mg PO Q6HR PRN tab 03/01/23 Lacosamide 100 mg PO BID #60 tab 03/01/23 levETIRAcetam [Keppra] 1,000 mg PO Q12HR #90 tab 03/01/23 Allergies Allergy/AdvReac Type Severity Reaction Status Date / Time fentanyl AdvReac Intermediate Confusion Verified 06/23/23 16:29 pseudoephedrine AdvReac Confusion Verified 06/23/23 16:29 [From [facility]] Review of Systems ROS Statement: Those systems with pertinent positive or pertinent negative responses have been documented in the HPI. ROS Other: All systems not noted in ROS Statement are negative. Past Medical History Past Medical History: Atrial Fibrillation, GERD/Reflux, Hypertension, Seizure Disorder, Thyroid Disorder Additional Past Medical History / Comment(s): severe pancreatitis - hospitallized for about a year 2021, blood clot on top of heart while in hospital History of Any Multi-Drug Resistant Organisms: None Reported Past Surgical History: Cholecystectomy Additional Past Surgical History / Comment(s): Cyst removal Past Anesthesia/Blood Transfusion Reactions: No Reported Reaction Past Psychological History: Anxiety Smoking Status: Former smoker Past Alcohol Use History: None Reported Past Drug Use History: None Reported General Exam Limitations: no limitations General appearance: alert, in no apparent distress Head exam: Present: atraumatic, normocephalic, normal inspection Eye exam: Present: normal appearance, PERRL, EOMI. Absent: scleral icterus, conjunctival injection, periorbital swelling ENT exam: Present: normal exam, mucous membranes moist Neck exam: Present: normal inspection. Absent: tenderness, meningismus, lymphadenopathy Respiratory exam: Present: normal lung sounds bilaterally. Absent: respiratory distress, wheezes, rales, rhonchi, stridor Cardiovascular Exam: Present: regular rate, normal rhythm, normal heart sounds. Absent: systolic murmur, diastolic murmur, rubs, gallop, clicks GI/Abdominal exam: Present: soft, tenderness (bilateral lower abdominal ), normal bowel sounds. Absent: distended, guarding, rebound, rigid Extremities exam: Present: normal inspection, full ROM, normal capillary refill. Absent: tenderness, pedal edema, joint swelling, calf tenderness Back exam: Present: normal inspection Neurological exam: Present: alert, oriented X3 Psychiatric exam: Present: normal affect, normal mood Skin exam: Present: warm, dry, intact, normal color. Absent: rash Course Vital Signs 06/23/23 06/23/23 06/23/23 16:27 17:05 18:00 Temperature 98 F Pulse Rate 67 Respiratory 18 Rate Blood Pressure 140/95 165/109 132/86 O2 Sat by Pulse 98 95 Oximetry 06/23/23 06/23/23 06/23/23 18:30 20:00 20:30 Temperature Pulse Rate Respiratory Rate Blood Pressure 149/76 148/84 164/77 O2 Sat by Pulse 95 100 Oximetry 06/23/23 06/23/23 06/23/23 21:00 21:30 22:00 Temperature Pulse Rate 58 L Respiratory 18 Rate Blood Pressure 154/83 176/90 160/92 O2 Sat by Pulse 97 99 98 Oximetry 06/23/23 06/24/23 22:46 00:29 Temperature 97.0 F L 97.9 F Pulse Rate 61 Respiratory 18 Rate Blood Pressure 152/78 O2 Sat by Pulse 97 Oximetry Medical Decision Making - Medical Decision Making Was pt. sent in by a medical professional or institution (Dr., PA, JOB ORDER CLERK, urgent care, hospital, or assisted...) When possible be specific @ -No Did you speak to anyone other than the patient for history (EMS, parent, family, police, friend...)? What history was obtained from this source @ -No Did you review nursing and triage notes (agree or disagree)? Why? @ -I reviewed and agree with nursing and triage notes Were old charts reviewed (outside hosp., previous admission, EMS record, old EKG, old radiological studies, urgent care reports/EKG's, assisted records)? Report findings @ -No old charts were reviewed Differential Diagnosis (chest pain, altered mental status, abdominal pain women, abdominal pain men, vaginal bleeding, weakness, fever, dyspnea, syncope, headache, dizziness, GI bleed, back pain, seizure, CVA, palpatations, mental health, musculoskeletal)? @ -Differential Abdominal Pain Women: Appendicitis, Cholecystitis, diverticulosis, ischemic bowel, pancreatitis, hepatitis, UTI, gastroenteritis, AAA, incarcerated hernia, bowel obstruction, constipation, inflammatory bowel, hepatitis, peptic ulcer disease, splenic infarction, perforated viscus, vulvitis, ovarian torsion, PID, kidney stone, placenta abruption, this is not meant to be an all-inclusive list EKG interpreted by me (3pts min.). @ -none X-rays interpreted by me (1pt min.). @ -None done CT interpreted by me (1pt min.). @ -CT abdomen shows atrophic appearance to pancreas with large cystic lesion CT of the pancreatic tail; nonspecific hypoattenuating region of the right hepatic lobe with potential filling defect likely related to pseudocyst of prior pancreatitis; mild wall edema of descending and sigmoid colon U/S interpreted by me (1pt. min.). @ -None done What testing was considered but not performed or refused? (CT, X-rays, U/S, labs)? Why? @ -None What meds were considered but not given or refused? Why? @ -None Did you discuss the management of the patient with other professionals (professionals i.e. ANDRES [place], JOB ORDER CLERK, lab, RT, psych nurse, social work coordinator, freight broker, teacher, bank compliance officer, foster care case manager)? Give summary @ -Management discussed with Dr. Tsang with [facility] who is accepting of the admission Was smoking cessation discussed for >3mins.? @ -No Was critical care preformed (if so, how long)? @ -No Were there social determinants of health that impacted care today? How? (Homelessness, low income, unemployed, alcoholism, drug addiction, transportation, low edu. Level, literacy, decrease access to med. care, prison, rehab)? @ -No Was there de-escalation of care discussed even if they declined (Discuss DNR or withdrawal of care, Hospice)? DNR status @ -No What co-morbidities impacted this encounter? (DM, HTN, Smoking, COPD, CAD, Cancer, CVA, ARF, Chemo, Hep., AIDS, mental health diagnosis, sleep apnea, morbid obesity)? @ -None Was patient admitted / discharged? Hospital course, mention meds given and route, prescriptions, significant lab abnormalities, going to OR and other pertinent info. @ -Admitted. Patient presents to the emergency department for hyperglycemia, lower abdominal pain. Labs obtained. CBC within normal limits; CMP shows sodium 135, potassium 5.1, creatinine 0.79; alk phos 185; amylase 176, lipase 1484; UA negative for nitrite, leukocyte esterase; acetone negative. Patient given [address] abdomen shows atrophic appearance to pancreas with large cystic lesion CT of the pancreatic tail; nonspecific hypoattenuating region of the right hepatic lobe with potential filling defect likely related to pseudocyst of prior pancreatitis; mild wall edema of descending and sigmoid colon. Patient will admitted for acute pancreatitis is on a clear liquid diet and have GI consult in the a.m. Case was discussed with Dr. Tsang with [facility] who is accepting the admission. Patient stable at time of admission. Case discussed with Dr. Ecahvarria. Undiagnosed new problem with uncertain prognosis? @ -No Drug Therapy requiring intensive monitoring for toxicity (Heparin, Nitro, Insulin, Cardizem)? @ -No Were any procedures done? @ -No Diagnosis/symptom? @ -pancreatitis Acute, or Chronic, or Acute on Chronic? @ -acute Uncomplicated (without systemic symptoms) or Complicated (systemic symptoms)? @ -uncomplicated Side effects of treatment? @ -No Exacerbation, Progression, or Severe Exacerbation? @ -No Poses a threat to life or bodily function? How? (Chest pain, [place], [place], pneumonia, PE, COPD, DKA, ARF, appy, cholecystitis, CVA, Diverticulitis, Homicidal, Suicidal, threat to staff... and all critical care pts) @ -No - Lab Data Result diagrams: 06/23/23 16:57 06/23/23 16:57 Lab Results 06/23/23 06/23/23 06/23/23 Range/Units 16:27 16:57 16:57 WBC 9.8 (3.8-10.6) k/uL RBC 4.79 (3.80-5.40) m/uL Hgb 13.9 (11.4-16.0) gm/dL Hct 41.6 (34.0-46.0) % MCV 86.8 (80.0-100.0) fL MCH 29.0 (25.0-35.0) pg MCHC 33.4 (31.0-37.0) g/dL RDW 14.0 (11.5-15.5) % Plt Count 227 (150-450) k/uL MPV 7.8 Neutrophils % 57 % Lymphocytes % 34 % Monocytes % 4 % Eosinophils % 2 % Basophils % 1 % Neutrophils # 5.5 (1.3-7.7) k/uL Lymphocytes # 3.4 (1.0-4.8) k/uL Monocytes # 0.4 (0-1.0) k/uL Eosinophils # 0.2 (0-0.7) k/uL Basophils # 0.1 (0-0.2) k/uL Sodium (137-145) mmol/L Potassium (3.5-5.1) mmol/L Chloride (98-107) mmol/L Carbon Dioxide (22-30) mmol/L Anion Gap mmol/L BUN (7-17) mg/dL Creatinine (0.52-1.04) mg/dL Est GFR (CKD-EPI)AfAm (>60 ml/min/1.73 sqM) Est GFR (CKD-EPI)NonAf (>60 ml/min/1.73 sqM) Glucose (74-99) mg/dL POC Glucose (mg/dL) 243 H (70-110) mg/dL POC Glu Dam Tender Assistant ID Selwyn Madrigal Calcium (8.4-10.2) mg/dL Total Bilirubin (0.2-1.3) mg/dL AST (14-36) U/L ALT (4-34) U/L Alkaline Phosphatase (38-126) U/L Total Protein (6.3-8.2) g/dL Albumin (3.5-5.0) g/dL Amylase (30-110) U/L Lipase (23-300) U/L TSH (0.465-4.680) mIU/L Urine Color Colorless Urine Appearance Clear (Clear) Urine pH 7.0 (5.0-8.0) Ur Specific [place] 1.043 H (1.001-1.035) Urine Protein Negative (Negative) Urine Glucose (UA) Negative (Negative) Urine Ketones Negative (Negative) Urine Blood Negative (Negative) Urine Nitrite Negative (Negative) Urine Bilirubin Negative (Negative) Urine Urobilinogen <2.0 (<2.0) mg/dL Ur Leukocyte Esterase Negative (Negative) Acetone, Qual (Negative) 06/23/23 06/23/23 Range/Units 16:57 17:15 WBC (3.8-10.6) k/uL RBC (3.80-5.40) m/uL Hgb (11.4-16.0) gm/dL Hct (34.0-46.0) % MCV (80.0-100.0) fL MCH (25.0-35.0) pg MCHC (31.0-37.0) g/dL RDW (11.5-15.5) % Plt Count (150-450) k/uL MPV Neutrophils % % Lymphocytes % % Monocytes % % Eosinophils % % Basophils % % Neutrophils # (1.3-7.7) k/uL Lymphocytes # (1.0-4.8) k/uL Monocytes # (0-1.0) k/uL Eosinophils # (0-0.7) k/uL Basophils # (0-0.2) k/uL Sodium 135 L (137-145) mmol/L Potassium 5.1 (3.5-5.1) mmol/L Chloride 100 (98-107) mmol/L Carbon Dioxide 25 (22-30) mmol/L Anion Gap 10 mmol/L BUN 24 H (7-17) mg/dL Creatinine 0.79 (0.52-1.04) mg/dL Est GFR (CKD-EPI)AfAm >90 (>60 ml/min/1.73 sqM) Est GFR (CKD-EPI)NonAf 81 (>60 ml/min/1.73 sqM) Glucose 248 H (74-99) mg/dL POC Glucose (mg/dL) 248 H (70-110) mg/dL POC Glu Dam Tender Assistant ID Jerica Baig T Calcium 9.6 (8.4-10.2) mg/dL Total Bilirubin 0.5 (0.2-1.3) mg/dL AST 27 (14-36) U/L ALT 20 (4-34) U/L Alkaline Phosphatase 185 H (38-126) U/L Total Protein 7.7 (6.3-8.2) g/dL Albumin 4.1 (3.5-5.0) g/dL Amylase 176 H (30-110) U/L Lipase 1484 H (23-300) U/L TSH 1.770 (0.465-4.680) mIU/L Urine Color Urine Appearance (Clear) Urine pH (5.0-8.0) Ur Specific [place] (1.001-1.035) Urine Protein (Negative) Urine Glucose (UA) (Negative) Urine Ketones (Negative) Urine Blood (Negative) Urine Nitrite (Negative) Urine Bilirubin (Negative) Urine Urobilinogen (<2.0) mg/dL Ur Leukocyte Esterase (Negative) Acetone, Qual Negative (Negative) Disposition Clinical Impression: Pancreatitis, Hyperglycemia Disposition: ADMITTED IP TO THIS HOSP Condition: Stable Is patient prescribed a controlled substance at d/c from ED?: No
[2023-06-23 21:26] LABS: Appearance,Urine Clear (Clear); Bilirubin,Urine Negative (Negative); Blood,Urine Negative (Negative); Color,Urine Colorless; Glucose,Urine (UA) Negative (Negative); Ketones,Urine Negative (Negative); Leukocyte Esterase,Urine Negative (Negative); Nitrite,Urine Negative (Negative); Protein,Urine Negative (Negative); Specific Gravity,Urine 1.043 (1.001-1.035); Urobilinogen,Urine <2.0 mg/dL (<2.0)
[2023-06-23] MEDS: SODIUM CHLORIDE 0.9% 1,000 ML IV SCH (23:27)
[2023-06-24] MEDS ORDERED: KETOROLAC 15 MG/ML 1 ML VIAL IVP PRN
[2023-06-24] MEDS ORDERED: ONDANSETRON 4 MG/2 ML VIAL IVP PRN
[2023-06-24] MEDS ORDERED: MORPHINE SULFATE 4 MG/ML SYRINGE IV PRN (00:09)
[2023-06-24] MEDS ORDERED: NALOXONE 0.4 MG/ML 1 ML VIAL IV PRN (00:09)
[2023-06-24 01:17] LABS: Glucose,Whole Blood 216 mg/dL (70-110)
--- NOTE | 2023-06-24 02:35 | P.HPIM ---
History of Present Illness H&P Date: 06/24/23 Patient is a 62-year-old female with a PMH of seizure disorder, history of CVA with visual deficits, hypertension, type II DM, and atrial flutter (not on anticoagulation), presents to the emergency room at the advice of her neurologist for hyperglycemia. Patient reports that her blood sugar has been elevated at home with multiple readings greater than 500. Her recent A1c was 10. The patient also reports experiencing intermittent epigastric abdominal discomfort without nausea or vomiting over the past 2-3 weeks. The discomfort is 5 out of 10 of maximal intensity, nonradiating, with no obvious precipitating or alleviating factors, lasting for a few minutes to hours at a time. The patient does report a prior history of pancreatitis. She denied alcohol use. Denies wheezing chest discomfort, shortness of breath, cough, diarrhea. CT abdomen and pelvis in the emergency room revealed findings consistent with pancreatitis. Laboratory evaluation revealed lipase of 1484, glucose 248, with an unremarkable UA and acetone. ED documentation reviewed and case discussed with ED provider. Review of systems: Pertinent positives and negatives as discussed in HPI, a complete review of systems was performed and all other systems are negative. Physical examination: Vital signs reviewed General: non toxic, no distress, appears at stated age, normal weight Derm: no unusual rashes/lesions, warm Head: atraumatic, normocephalic, symmetric Eyes: EOMI, no lid lag, anicteric sclera, pupils equal round reactive to light ENT: Nose and ears atraumatic Neck: No cervical lymphadenopathy, trachea midline, supple Mouth: no lip lesion, mucus membranes moist Cardiovascular: S1S2 reg, no murmur, positive dorsalis pedis pulse bilateral, no edema Lungs: CTA bilateral, no rhonchi, no rales, no accessory muscle use Abdominal: soft, nontender to palpation, no guarding Ext: muscle strength 5 out of 5 in all 4 extremities grossly, no gross muscle atrophy, no contractures, Neuro: CN II-XI grossly intact, no gross focal neuro deficits Psych: Alert, oriented, appropriate affect Assessment: Acute pancreatitis, unclear etiology, with evidence of cystic areas in the pancreatic tail Hyperglycemia in setting of type II DM Chronic conditions: History of CVA, seizure disorder, hypertension, atrial flutter Imaging: CT abdomen and pelvis in the emergency room revealed findings consistent with pancreatitis. Data Review: Laboratory evaluation revealed lipase of 1484, glucose 248, with an unremarkable UA and acetone. Plan: Continue with IV fluids with normal saline 130 mL/h Monitor lipase levels Clear liquid diet for now Pain control GI consult Insulin sliding scale blood glucose monitoring Check A1c DVT prophylaxis: Lovenox subcu The patient is admitted with an anticipated greater than 2 midnight stay for evaluation of pancreatitis CODE STATUS: Full Code Discussed with: Patient Anticipated discharge place: Home Past Medical History Past Medical History: Atrial Fibrillation, GERD/Reflux, Hypertension, Seizure Disorder, Thyroid Disorder Additional Past Medical History / Comment(s): severe pancreatitis - hospitallized for about a year 2021, blood clot on top of heart while in hospital History of Any Multi-Drug Resistant Organisms: None Reported Past Surgical History: Cholecystectomy Additional Past Surgical History / Comment(s): Cyst removal Past Anesthesia/Blood Transfusion Reactions: No Reported Reaction Past Psychological History: Anxiety Smoking Status: Former smoker Past Alcohol Use History: None Reported Past Drug Use History: None Reported Medications and Allergies Home Medications Medication Instructions Recorded Confirmed Type Aspirin 81 mg PO DAILY 02/25/23 02/25/23 History Levothyroxine Sodium [Synthroid] 25 mcg PO DAILY 02/25/23 02/25/23 History Metoprolol Succinate [Toprol XL] 50 mg PO DAILY 02/25/23 02/25/23 History Omeprazole 20 mg PO DAILY 02/25/23 02/25/23 History Acetaminophen Tab [Tylenol] 650 mg PO Q6HR PRN tab 03/01/23 Rx Lacosamide 100 mg PO BID #60 tab 03/01/23 Rx levETIRAcetam [Keppra] 1,000 mg PO Q12HR #90 tab 03/01/23 Rx Allergies Allergy/AdvReac Type Severity Reaction Status Date / Time fentanyl AdvReac Intermediate Confusion Verified 06/23/23 16:29 pseudoephedrine AdvReac Confusion Verified 06/23/23 16:29 [From [facility]] Physical Exam Vitals: Vital Signs Temp Pulse Pulse Resp BP BP Pulse Ox 06/24/23 00:54 97.6 F 77 18 155/84 98 06/24/23 00:29 97.9 F 61 18 152/78 97 06/23/23 22:46 97.0 F L 06/23/23 22:00 160/92 98 06/23/23 21:30 176/90 99 06/23/23 21:00 58 L 18 154/83 97 06/23/23 20:30 164/77 100 06/23/23 20:00 148/84 95 06/23/23 18:30 149/76 06/23/23 18:00 132/86 95 06/23/23 17:05 165/109 06/23/23 16:27 98 F 67 18 140/95 98 Intake and Output 06/23/23 06/23/23 06/24/23 14:59 22:59 06:59 Other: Weight 81.647 kg 81.647 kg Results CBC & Chem 7: 06/23/23 16:57 06/23/23 16:57 Labs: Abnormal Lab Results - Last 24 Hours (Table) 06/23/23 06/23/23 06/23/23 Range/Units 16:27 16:57 16:57 Sodium 135 L (137-145) mmol/L BUN 24 H (7-17) mg/dL Glucose 248 H (74-99) mg/dL POC Glucose (mg/dL) 243 H (70-110) mg/dL Alkaline Phosphatase 185 H (38-126) U/L Amylase 176 H (30-110) U/L Lipase 1484 H (23-300) U/L Ur Specific [place] 1.043 H (1.001-1.035) 06/23/23 06/24/23 Range/Units 17:15 01:16 Sodium (137-145) mmol/L BUN (7-17) mg/dL Glucose (74-99) mg/dL POC Glucose (mg/dL) 248 H 216 H (70-110) mg/dL Alkaline Phosphatase (38-126) U/L Amylase (30-110) U/L Lipase (23-300) U/L Ur Specific [place] (1.001-1.035) Thrombosis Risk Factor Assmnt - Choose All That Apply Any of the Below Risk Factors Present?: No
[2023-06-24 06:10] LABS: Glucose,Whole Blood 204 mg/dL (70-110)
[2023-06-24] MEDS: INSULIN ASPART (NovoLOG) 100 UNIT/ML VIAL SQ SCH ×4 (06:45→21:53)
[2023-06-24] MEDS: ENOXAPARIN 40 MG/0.4 ML SYRINGE SQ SCH (08:45)
[2023-06-24] MEDS: SODIUM CHLORIDE 0.9% 1,000 ML IV SCH ×2 (08:45→17:21)
[2023-06-24 11:52] LABS: Glucose,Whole Blood 275 mg/dL (70-110)
--- NOTE | 2023-06-24 14:37 | P.CONS ---
History of Present Illness - Reason for Consult Consult date: 06/24/23 Pancreatitis Requesting physician: Annette Hanson - Chief Complaint Hyperglycemia - History of Present Illness This pleasant 62-year-old female who was apparently seeing a neurologist in the outpatient setting as well as noted to have elevated glucose in the 600s. She was told to come to the emergency department for further evaluation. As the patient with a history of pancreatitis. 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 She has history of PEG tube and cholecystectomy. She lives in [place] however visits this area has her sister lives nearby. On this admission she had elevated lipase and a CT of the abdomen and pelvis reporting atrophic appearance of the pancreas with large cystic lesion near pancreatic tail findings favor sequela such as pseudocyst or prior pancreatitis. She was here in February of this year and came to emergency department and underwent CT of the chest that reported a oval cystic mass measuring 7.6 x 4.8 cm along the pancreatic tail region. She currently states she doesn't have any abdominal pain, no nausea or vomiting , No fevers or chills. She was admitted with new diagnosis of diabetes mellitus. Admitting labs WBC 9.8 hemoglobin 13.9 hematocrit 41 platelet count 227,000 sodium 135 potassium 5.1 BUN 24 creatinine 0.78 glucose 248 total bilirubin 0.5 AST 27 ALT 20 alkaline phosphatase 185 amylase 176 lipase 1484 Review of Systems REVIEW OF SYSTEMS: CARDIOPULMONARY: No chest pain, shortness of breath. Gastrointestinal: No abdominal pain. No nausea or vomiting. No hematemesis, coffee-ground emesis. No rectal bleeding, or melena. GENITOURINARY: No dysuria or hematuria. MUSCULOSKELETAL: Reports normal range of motion. SKIN: No rashes. No jaundice. ENDOCRINE: No chills, fevers. No excessive weight gain or loss. No polydipsia or polyuria. PSYCHIATRIC: Unremarkable. NEUROLOGY: No change in mental status. Denies dizziness, headache. ENT: Vision unremarkable. CONSTITUTIONAL: No recent weight loss. No fever, chills, night sweats. Past Medical History Past Medical History: Atrial Fibrillation, GERD/Reflux, Hypertension, Seizure Disorder, Thyroid Disorder Additional Past Medical History / Comment(s): severe pancreatitis - hospitallized for about a year 2021, blood clot on top of heart while in hospital History of Any Multi-Drug Resistant Organisms: None Reported Past Surgical History: Cholecystectomy Additional Past Surgical History / Comment(s): Cyst removal Past Anesthesia/Blood Transfusion Reactions: No Reported Reaction Past Psychological History: Anxiety Smoking Status: Former smoker Past Alcohol Use History: None Reported Past Drug Use History: None Reported Medications and Allergies Home Medications Medication Instructions Recorded Confirmed Type Aspirin 81 mg PO DAILY 02/25/23 06/24/23 History Levothyroxine Sodium [Synthroid] 25 mcg PO DAILY 02/25/23 06/24/23 History Metoprolol Succinate [Toprol XL] 50 mg PO DAILY 02/25/23 06/24/23 History Omeprazole 20 mg PO DAILY 02/25/23 06/24/23 History Lacosamide 100 mg PO BID #60 tab 03/01/23 06/24/23 Rx levETIRAcetam [Keppra] 1,000 mg PO Q12HR #90 tab 03/01/23 06/24/23 Rx Cholecalciferol [Vitamin D3 (25 25 mcg PO DAILY 06/24/23 06/24/23 History Mcg = 1000 Iu)] Allergies Allergy/AdvReac Type Severity Reaction Status Date / Time fentanyl AdvReac Intermediate Confusion Verified 06/24/23 08:56 pseudoephedrine AdvReac Confusion Verified 06/24/23 08:56 [From [facility]] Physical Exam Vitals: Vital Signs Temp Pulse Pulse Resp BP BP Pulse Ox 06/24/23 07:16 97.9 F 62 18 139/84 97 06/24/23 00:54 97.6 F 77 18 155/84 98 06/24/23 00:29 97.9 F 61 18 152/78 97 06/23/23 22:46 97.0 F L 06/23/23 22:00 160/92 98 06/23/23 21:30 176/90 99 06/23/23 21:00 58 L 18 154/83 97 06/23/23 20:30 164/77 100 06/23/23 20:00 148/84 95 06/23/23 18:30 149/76 06/23/23 18:00 132/86 95 06/23/23 17:05 165/109 06/23/23 16:27 98 F 67 18 140/95 98 Intake and Output 12/19/23 12/20/23 12/20/23 22:59 06:59 14:59 Other: # Voids 3 Weight 81.647 kg 81.647 kg General appearance: The patient is alert, oriented, appears in no acute distress. HET: Head is normocephalic and atraumatic. Conjunctiva pink. Sclera anicteric. Neck: Supple without lymphadenopathy. Trachea midline. Heart: Regular. Lungs: Equal expansion, normal respiratory effort. Abdomen: Soft, nontender, nondistended with bowel sounds. No guarding or rigidity. Skin: No rashes. No jaundice. Extremities: Normal skin color and turgor. No pedal edema. Neurological: No focal deficits. Alert and oriented x3. Results CBC & Chem 7: 06/23/23 16:57 06/23/23 16:57 Labs: Abnormal Lab Results - Last 24 Hours (Table) 06/23/23 06/23/23 06/23/23 Range/Units 16:27 16:57 16:57 Sodium 135 L (137-145) mmol/L BUN 24 H (7-17) mg/dL Glucose 248 H (74-99) mg/dL POC Glucose (mg/dL) 243 H (70-110) mg/dL Alkaline Phosphatase 185 H (38-126) U/L Amylase 176 H (30-110) U/L Lipase 1484 H (23-300) U/L Ur Specific [facility] 1.043 H (1.001-1.035) 06/23/23 06/24/23 06/24/23 Range/Units 17:15 01:16 05:18 Sodium (137-145) mmol/L BUN (7-17) mg/dL Glucose (74-99) mg/dL POC Glucose (mg/dL) 248 H 216 H (70-110) mg/dL Alkaline Phosphatase (38-126) U/L Amylase (30-110) U/L Lipase 1293 H (23-300) U/L Ur Specific [facility] (1.001-1.035) 06/24/23 Range/Units 06:09 Sodium (137-145) mmol/L BUN (7-17) mg/dL Glucose (74-99) mg/dL POC Glucose (mg/dL) 204 H (70-110) mg/dL Alkaline Phosphatase (38-126) U/L Amylase (30-110) U/L Lipase (23-300) U/L Ur Specific [facility] (1.001-1.035) Comments: CT of the abdomen and pelvis reporting atrophic appearance of the pancreas with large cystic lesion near pancreatic tail findings favor sequela such as pseudocyst or prior pancreatitis. Also nonspecific hypoattenuated region of the right hepatic lobe, with potential filling defect within a branch of the hepatic artery, felt potentially to represent hepatic infarct. This finding is likely related to pressure #1 and sequela of prior pancreatitis. 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 Patient states she was hospitalized for most of the year in 2021 in [place]. She has history of cholecystectomy and PEG tube placement. She's had recurrent pancreatitis likely secondary to history of necrotizing pancreatitis and known pseudocyst. Elevated amylase and lipase related to chronic pseudocyst and pancreatitis. Patient does not appear to have acute episode of pancreatitis, she can follow-up in the outpatient setting as she states that she may be sta james in [place]. Can consider possible referral for EUS if needed at that time. Current Visit: Yes Status: Acute Code(s): K86.3 - PSEUDOCYST OF PANCREAS; K86.1 - OTHER CHRONIC PANCREATITIS SNOMED Code(s): 5308408066 Plan: 1. Symptomatic and supportive care 2. Diet as tolerated 3. There is no indication for any further workup for pancreatitis, this is all chronic likely due to her history of necrotizing pancreatitis with known pseudocyst which is stable 4. Recommend outpatient follow-up with gastroenterology 5. Rest of medical management per primary medical team Thank you for this consultation, we will continue to follow. Dr. Indigo Mendez I agree with the dictator's note, documented as a scribe by Shavon Gay.
--- NOTE | 2023-06-24 14:49 | P.PN ---
Progress Note - Text Progress Note Date: 06/24/23 Patient seen and examined at bedside. She was seen by my partner early this morning. She states that she has a history of significant pancreatitis that required multiple repeat hospitalizations for over a year process and the patient was on dialysis at some point in time. Initially during that time she required some insulin but was subsequently able to stop taking insulin and was told just to follow her blood sugars. Over the last several days she noted them to be greater than 500 at home ensure was referred to the hospital by one of her physicians. She is unsure when. She is currently staying with her sister but has been living in [place]. She plans to stay up. Visiting for quite some time. She is familiar with insulin and how to use it is her other sister did have insulin-dependent diabetes. Case discussed with GI services. She will need outpatient workup for her continued pancreatic pseudocyst as this is not changing in size. We will need to continue to monitor her blood sugars overnight. Start patient on Levemir 10 units at night, continue with sliding scale insulin, consult dietitian Verified with patient that she would like to be a DO NOT RESUSCITATE due to her worsening overall physical health and a history of prolonged ICU stay.
[2023-06-24 17:11] LABS: Glucose,Whole Blood 124 mg/dL (70-110)
[2023-06-24 17:24] LABS: Glucose,Whole Blood 157 mg/dL (70-110)
[2023-06-24] MEDS ORDERED: LORazepam 2 MG/ML INJ IV STA (17:33)
[2023-06-24] MEDS ORDERED: LORazepam 2 MG/ML INJ IV PRN (18:02)
--- NOTE | 2023-06-24 18:15 | P.EN ---
Patient with panic attack, shaking and crying with left upper extremity tremor. Responded well to ativan 0.5 mg IV X 1.
[2023-06-24] MEDS: levETIRAcetam 500 MG TAB PO SCH (18:49)
[2023-06-24] MEDS: LACOSAMIDE 50 MG TABLET PO SCH (18:50)
[2023-06-24 19:29] LABS: Glucose,Whole Blood 233 mg/dL (70-110)
[2023-06-24] MEDS ORDERED: INSULIN DETEMIR (LEVEMIR) 100 UNIT/ML SYR SQ SCH (21:00)
[2023-06-25] MEDS: SODIUM CHLORIDE 0.9% 1,000 ML IV SCH ×2 (01:05→08:06)
[2023-06-25] MEDS: ACETAMINOPHEN TAB 325 MG TAB PO PRN ×2 (01:09→08:10)
[2023-06-25 05:36] LABS: Glucose,Whole Blood 105 mg/dL (70-110)
[2023-06-25] MEDS: INSULIN ASPART (NovoLOG) 100 UNIT/ML VIAL SQ SCH ×2 (06:21→12:28)
[2023-06-25] MEDS ORDERED: LEVOTHYROXINE 25 MCG TAB PO SCH (06:30)
[2023-06-25 07:27] VITALS: BP 176/94; PULSE 79; RESP 19; TEMP 97.6
[2023-06-25] MEDS: ENOXAPARIN 40 MG/0.4 ML SYRINGE SQ SCH (08:05)
[2023-06-25] MEDS: levETIRAcetam 500 MG TAB PO SCH (08:05)
[2023-06-25] MEDS: LACOSAMIDE 50 MG TABLET PO SCH (08:06)
[2023-06-25] MEDS ORDERED: PANTOPRAZOLE 40 MG TABLET PO SCH (09:00)
[2023-06-25] MEDS ORDERED: ASPIRIN 81 MG PO SCH (09:00)
[2023-06-25] MEDS ORDERED: METOPROLOL SUCCINATE (ER) 50 MG TAB.ER.24H PO SCH (09:00)
[2023-06-25] MEDS ORDERED: CHOLECALCIFEROL 25 MCG (1000 IU) TABLET PO SCH (09:00)
--- NOTE | 2023-06-25 10:33 | P.DS ---
Providers Date of admission: 06/24/23 00:11 Expected date of discharge: 06/25/23 Attending physician: Hugo Tsang MD Consults: 06/24/23 00:09 Consult Physician Routine Consulting Provider: Fadia Mendez Consult Reason/Comments: pancreatitis Do you want consulting provider notified?: Yes, Notify in am Primary care physician: Stated None Hospital Course: Discharge Diagnosis: Acute on chronic pancreatitis with pseudocyst Colitis Hepatic infarct Diabetes mellitus with hyperglycemia Hospital Course: Patient is a very pleasant 62-year-old female with a past medical history of seizure disorder, CVA with visual deficits, hypertension, type 2 insulin- dependent diabetes mellitus, atrial flutter not on anticoagulation, and recurrent pancreatitis with pseudocyst. She presented to the emergency department with a chief complaint of hyperglycemia. Reporting multiple recurrent readings showing her glucose to be greater than 500 and recent hemoglobin A1c being 10%. In addition patient reported epigastric pain 2-3 weeks. She underwent full evaluation in the emergency department. CT abdomen and pelvis revealing atrophic appearance of the pancreas with large cystic lesions near the pancreatic tail consistent with pseudocyst and chronic pancreatitis, nonspecific hypotension related region of the right hepatic lobe with a potential filling defect within a branch of the hepatic artery possibly representing hepatic infarct likely related to prior pancreatitis, and mild wall edema of the descending and sigmoid colon felt to be nonspecific colitis. Patient was admitted under our services with consultation to gastroenterology. Scrip Clerk evaluated stated no need for further workup at this time as this is all felt to be chronic se she was started on Levemir 10 units daily. condary to chronic pancreatitis with history of necrotizing pancreatitis with known pseudocyst which is stable. Scrip Clerk recommending outpatient follow-up in their office. During hospitalization patient also being treated for hyperglycemia. She was started on Levemir 10 units daily and educated on the importance of checking blood glucose levels and following up outpatient with her PCP. Patient had full resolution of pain and no further complaints. Discharge instructions reviewed with patient and family at bedside. Patient medically stable for discharge at this time. Patient follow-up with PCP in 1-2 days and with gastrin triology in 1 week. Physical exam: Vital signs reviewed and stable. General: Nontoxic, no distress and appears stated age. Derm: Skin warm and dry, normal coloration for ethnicity. Head: Atraumatic, normocephalic and symmetric. Eyes: EOMs intact, no lid lag, and anicteric sclera Mouth: no lip lesions, mucus membranes moist Cardiovascular: regular rate and rhythm with normal S1S2, no murmur, positive posterior tibial pulses bilaterally, and cap refill < 2 seconds. Lungs: Respirations even, regular, and unlabored on room air. Lungs CTA bilaterally, no rhonchi, no rales, no wheezing, and no accessory muscle usage. Abdominal: soft, nontender to palpation, no guarding, no appreciable organomegaly Ext: ROM intact. No gross muscle atrophy, no edema, no contractures Neuro: Speech clear, face symmetrical and CN II-XII grossly intact with no noted focal neuro deficits Psych: Alert and oriented to person, place, time, and situation. Appropriate and pleasant affect. A total of 38 minutes of time were spent preparing this complex discharge summary. Pt was discharged on 06/25/20 through 10:27 AM. Patient was seen independently by Nurse Practitioner. This document was prepared using [employer] dictation software. Please allow for errors in branch store manager while rare they do occur. I reviewed the documentation as provided by the SHIRIN above, who is the original author of this note. I agree with the documented assessment and plan, with the following changes: none Patient Condition at Discharge: Stable Plan - Discharge Summary Discharge Rx Participant: Yes New Discharge Prescriptions: New Insulin Detemir [Levemir Flexpen] 10 units SQ DAILY 30 Days #1 each Continue Omeprazole 20 mg PO DAILY Metoprolol Succinate [Toprol XL] 50 mg PO DAILY Levothyroxine Sodium [Synthroid] 25 mcg PO DAILY Cholecalciferol [Vitamin D3 (25 Mcg = 1000 Iu)] 25 mcg PO DAILY Aspirin 81 mg PO DAILY levETIRAcetam [Keppra] 1,000 mg PO Q12HR #90 tab Lacosamide 100 mg PO BID #60 tab Discharge Medication List Aspirin 81 mg PO DAILY 02/25/23 [History] Levothyroxine Sodium [Synthroid] 25 mcg PO DAILY 02/25/23 [History] Metoprolol Succinate [Toprol XL] 50 mg PO DAILY 02/25/23 [History] Omeprazole 20 mg PO DAILY 02/25/23 [History] Lacosamide 100 mg PO BID #60 tab 03/01/23 [Rx] levETIRAcetam [Keppra] 1,000 mg PO Q12HR #90 tab 03/01/23 [Rx] Cholecalciferol [Vitamin D3 (25 Mcg = 1000 Iu)] 25 mcg PO DAILY 06/24/23 [History] Insulin Detemir [Levemir Flexpen] 10 units SQ DAILY 30 Days #1 each 06/25/23 [Rx] Follow up Appointment(s)/Referral(s): Harriet Davenport DO [Family Provider] - 07/02/23 (Keep scheduled appointment with Dr. Davenport. ) Fadia Mendez MD [STAFF PHYSICIAN] - 3 Weeks (Office closed for lunch. Please call office when open to make appointment.) Patient Instructions/Handouts: Pancreatitis (DC), Type 2 Diabetes Management for Adults (DC) Activity/Diet/Wound Care/Special Instructions: 1. [employer] - [phone] is the company that will be sending you your new glucometer and supplies. Please call them if you do not receive anything in the mail from them within 3 days of discharge. 2. If you do not receive your glucometer and run out of diabetic supplies - go to [facility] and ask about their free meter and cheaper testing supplies. 3. Discussed at bedside, it is important to monitor blood glucose levels closely. Document these findings in her daily log/chart and bring with UTI next doctor's appointment as adjustments may be needed to the dosing regimen or additional medications may be necessary. Discharge Disposition: HOME SELF-CARE
[2023-06-25 11:28] LABS: Glucose,Whole Blood 151 mg/dL (70-110)
[2023-06-25 11:47] VITALS: BMI 30.9
== END 2023-06-25 13:27 | disposition home or self-care (01) ==
LOC: EC 15:55 → 4SSUR 06-24 00:11
PROVIDERS: ADMIT Internal Medicine; ATTEND Internal Medicine
DX: K85.90 Acute pancreatitis without necrosis or infection, unspecified (principal); K86.1 Other chronic pancreatitis; K86.3 Pseudocyst of pancreas; K52.9 Noninfective gastroenteritis and colitis, unspecified; K76.3 Infarction of liver; E11.65 Type 2 diabetes mellitus with hyperglycemia; F41.0 Panic disorder [episodic paroxysmal anxiety]; I48.91 Unspecified atrial fibrillation; G40.909 Epilepsy, unspecified, not intractable, without status epilepticus; E07.9 Disorder of thyroid, unspecified; K21.9 Gastro-esophageal reflux disease without esophagitis; F41.9 Anxiety disorder, unspecified; I10 Essential (primary) hypertension; I69.398 Other sequelae of cerebral infarction; H53.9 Unspecified visual disturbance; I48.92 Unspecified atrial flutter; Z66 Do not resuscitate; Z79.82 Long term (current) use of aspirin; Z79.890 Hormone replacement therapy; Z79.899 Other long term (current) drug therapy; Z88.8 Allergy status to other drugs, medicaments and biological substances; Z88.5 Allergy status to narcotic agent; Z90.49 Acquired absence of other specified parts of digestive tract; Z87.891 Personal history of nicotine dependence
CPT/HCPCS: 96361 ×3; 96372 ×2; 96374; 99285; 36415; 80053; 84443; 82150; 82009; 83690 ×2; 85025; 81003; 83036; 74177; G0378 ×3; J2060; J1650 ×2; Q9967